=== PATIENT | female | born 1960 | race Caucasian/White ===

== ENCOUNTER → 2018-03-10 16:36 | Outpatient (CLI) | payer OTHER, MEDICAID, SELFPAY ==
[2018-03-10 18:01] LABS: Alanine Aminotransferase 20 IU/L (9-52); Albumin 4.8 g/dL (3.5-5.0); Albumin Globulin Ratio 1.4 (1.0-2.8); Alkaline Phosphatase 63 U/L (38-126); Aspartate Aminotransferase 17 IU/L (14-36); Bilirubin Total 0.8 mg/dL (0.2-1.3); Blood Urea Nitrogen 22 mg/dL (7-17); Calcium 9.5 mg/dL (8.4-10.2); Carbon Dioxide 26 mmol/L (22-32); Chloride 105 mmol/L (98-107); Estimated Glomerular Filt Rate 57.1 mL/min (>60); Globulin 3.5 g/dL (1.7-4.1); Glucose 126 mg/dL (70-100); HEMOLYSIS < 15 (0-50); Potassium 4.7 mmol/L (3.4-5.1); Sodium 143 mmol/L (137-145); Total Protein 8.3 g/dL (6.3-8.2)
[2018-03-10 18:21] LABS: Add Manual Diff / Slide Review NO; Basophils Percent Auto 0.1 % (0-2); Hematocrit 36.5 % (36-46); Hemoglobin 12.4 g/dL (12.0-16.0); Lymphocytes Percent Auto 15.4 % (25-40); Mean Corpuscular HGB Conc 33.9 % (30-36); Mean Corpuscular Hemoglobin 31.3 PG (26-34); Mean Corpuscular Volume 92.4 fL (80-100); Neutrophils Absolute Auto 6100 /uL (1500-7000); Neutrophils Percent Auto 80.5 % (50-75); Platelet Count 366 X10^3/uL (150-400); Red Blood Cell Count 3.95 X10^6/uL (4.0-5.2); Red Cell Distribution Width 12.5 % (11.6-14.8); White Blood Cell Count 7.6 X10^3/uL (4.5-11.0)
[2018-03-10 18:32] LABS: Thyroid Stimulating Hormone 1.62 uIU/mL (0.47-4.68)
== END ==
PROVIDERS: PCP Family Medicine; Visit Provider Family Medicine
DX: Z94.0 Kidney transplant status (principal)
CPT/HCPCS: 36415; 80053; 84443; 85025

== ENCOUNTER 2018-05-23 11:37 | Emergency (ER) | payer OTHER, MEDICAID, SELFPAY ==
[2018-05-23 11:44] VITALS: BP 154/96; PULSE 80; RESP 17; TEMP 37; O2SAT 100
--- NOTE | 2018-05-23 14:52 | PC.NURSE ---
gone out to update rubio twice. but she still wants to leave. signed paper work, said she would call her pcp to let them know not seen today.
== END 2018-05-23 14:54 | disposition left against medical advice (07) ==
PROVIDERS: Emergency Provider Emergency Medicine; PCP Family Medicine
DX: Z53.21 Procedure and treatment not carried out due to patient leaving prior to being seen by health care provider (principal)
CPT/HCPCS: 81003; 99282

== ENCOUNTER → 2018-05-26 14:35 | Outpatient (CLI) | payer OTHER, MEDICAID, SELFPAY ==
--- NOTE | 2018-05-26 14:37 | DI.MRI.S_ITS ---
PROCEDURE: MR ABDOMEN WO CON INDICATIONS: chronic pancreatitis, abdominal pain TECHNIQUE: Coronal HASTE through the abdomen, axial 2-D FLASH in- and [id number], and breath-hold T2 FSE with fat saturation through the biliary system and pancreas. Oblique coronal and axial thin-slice HASTE, radial thick-slab HASTE centered on the extrahepatic bile ducts. Intravenous secretin: Not requested. COMPARISON: [facility], CT, ABDOMEN/PELVIS WITH CONTRAST, 09/21/2016, 9:23. FINDINGS: Image quality: Exce slightly degraded due to due respiratory motion llent. Pancreas and biliary system: Intra- and extra-hepatic biliary ducts are non dilated. Pancreatic duct is mildly prominent in size, unchanged from previous CT study. Calcification scattered along pancreatic parenchyma is noted, consistent with chronic pancreatitis. No discrete pancreatic lesion is seen. There is no pancreatic duct developmental anomalies. Gallbladder is surgically absent. Other solid organs: Liver is normal in size. Post surgical changes from hepatic transplant are seen in right upper quadrant abdomen unchanged from prior study. No discrete hepatic lesion is seen. Spleen is normal in size. No adrenal nodules. 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 Right pelvic kidney is partially visualized and show no gross hydronephrosis. Nodes and vessels: No retroperitoneal or mesenteric adenopathy by size criteria. Aorta and inferior vena cava are normal in size. Bowel and peritoneum: Unenhanced bowel loops are normal in caliber. No free fluid. Lung bases: No basal pleural effusions. Heart size is normal. Bones and soft tissues: No ventral hernias. Bone marrow is of normal overall signal. IMPRESSION: #1. No intrahepatic biliary ductal dilatation. No common bile duct dilatation. Mild prominence of pancreatic duct unchanged from prior study. No evidence of choledocholithiasis. #2. Few calcifications scattered along pancreatic body and tail, likely represent chronic pancreatitis. No gross discrete pancreatic lesion or peripancreatic inflammatory changes. #3: Post surgical changes from liver transplant and kidney transplant with right sided pelvic kidney. Atrophic appearing bilateral andreafski kidneys. No hydronephrosis. Dictated by: Orlando Bales M.D. on 05/26/2018 at 16:06 Approved by: Orlando Bales M.D. on 05/26/2018 at 16:14
== END ==
PROVIDERS: PCP Family Medicine; Visit Provider Family Medicine
DX: K86.1 Other chronic pancreatitis (principal); R10.9 Unspecified abdominal pain; Z94.4 Liver transplant status; Z94.0 Kidney transplant status
CPT/HCPCS: 74181

== ENCOUNTER → 2018-12-16 12:38 | Outpatient (CLI) | payer OTHER, MEDICAID, SELFPAY ==
[2018-12-16 15:20] LABS: Bacteria Urine None Seen
[2018-12-16 15:24] LABS: Appearance Urine UA CLEAR; Bilirubin Urine UA NEGATIVE (NEGATIVE); Color Urine UA YELLOW; Glucose Urine UA NEGATIVE (Negative); Ketones Urine UA NEGATIVE (NEGATIVE); Leukocyte Esterase Urine UA TRACE (NEGATIVE); Nitrite Urine UA NEGATIVE (Negative); Occult Blood Urine UA 2+ (Negative); Protein Urine UA 1+ (Negative); Urobilinogen Urine UA 0.2 E.U./dL (0.2)
[2018-12-16 15:40] LABS: RBC Urine 5-10/HPF (0-5/HPF); Squamous Epithelial Cell Urine 5-10 /HPF (0-5/HPF); WBC Urine 1-5/HPF (0-5/HPF)
[2018-12-16 15:41] LABS: Culture Indicated Urine Cult Not Indicated
== END ==
PROVIDERS: PCP Family Medicine; Visit Provider Hospitalist
DX: M54.9 Dorsalgia, unspecified (principal)
CPT/HCPCS: 81001

== ENCOUNTER → 2018-12-16 13:06 | Outpatient (CLI) | payer OTHER, MEDICAID, SELFPAY ==
[2018-12-16 13:20] LABS: Add Manual Diff / Slide Review NO; Basophils Absolute Auto 0 /uL (0-100); Basophils Percent Auto 0.3 % (0-2); Eosinophils Absolute Auto 0 /uL (0-450); Hematocrit 32.8 % (36-46); Hemoglobin 11.3 g/dL (12.0-16.0); Lymphocytes Absolute Auto 1100 /uL (1100-4500); Lymphocytes Percent Auto 10.9 % (25-40); Mean Corpuscular HGB Conc 34.5 % (30-36); Mean Corpuscular Hemoglobin 31.7 PG (26-34); Mean Corpuscular Volume 91.7 fL (80-100); Monocytes Absolute Auto 800 /uL (0-900); Monocytes Percent Auto 8.2 % (3-14); Neutrophils Absolute Auto 8100 /uL (1500-7000); Neutrophils Percent Auto 80.6 % (50-75); Platelet Count 220 X10^3/uL (150-400); Red Blood Cell Count 3.58 X10^6/uL (4.0-5.2); Red Cell Distribution Width 12.9 % (11.6-14.8)
[2018-12-16 13:45] LABS: BUN Creatinine Ratio 15.7 (6-22); Blood Urea Nitrogen 22 mg/dL (7-17); Calcium 9.6 mg/dL (8.4-10.2); Carbon Dioxide 24 mmol/L (22-32); Chloride 99 mmol/L (98-107); Estimated Glomerular Filt Rate 38.6 mL/min (>60); Glucose 118 mg/dL (70-100); HEMOLYSIS 20 (0-50); Potassium 4.5 mmol/L (3.4-5.1); Sodium 137 mmol/L (137-145)
== END ==
PROVIDERS: PCP Family Medicine; Visit Provider Hospitalist
DX: N39.0 Urinary tract infection, site not specified (principal); R10.9 Unspecified abdominal pain; M54.9 Dorsalgia, unspecified
CPT/HCPCS: 36415; 80048; 81001; 85025

== ENCOUNTER → 2018-12-23 12:20 | Outpatient (CLI) | payer OTHER, MEDICAID, SELFPAY ==
[2018-12-23 13:53] LABS: BUN Creatinine Ratio 20.8 (6-22); Blood Urea Nitrogen 27 mg/dL (7-17); Calcium 9.5 mg/dL (8.4-10.2); Carbon Dioxide 25 mmol/L (22-32); Chloride 106 mmol/L (98-107); Estimated Glomerular Filt Rate 42.1 mL/min (>60); Glucose 95 mg/dL (70-100); HEMOLYSIS < 15 (0-50); Potassium 4.7 mmol/L (3.4-5.1); Sodium 142 mmol/L (137-145)
[2018-12-25 19:56] LABS: Tacrolimus 3.2 mcg/L (5.0-20.0)
== END ==
PROVIDERS: PCP Family Medicine; Visit Provider Hospitalist
DX: Z94.0 Kidney transplant status (principal); N17.9 Acute kidney failure, unspecified
CPT/HCPCS: 36415; 80048; 80197

== ENCOUNTER → 2019-02-23 09:57 | Outpatient (CLI) | payer OTHER, MEDICAID, SELFPAY ==
--- NOTE | 2019-02-23 09:59 | DI.RAD.S_ITS ---
PROCEDURE: XR ACUTE ABDOMEN SERIES INDICATIONS: Abdominal pain TECHNIQUE: One view chest and two views of the abdomen were acquired. COMPARISON: None. FINDINGS: Surgical changes and devices: Abdominal surgical clips and vascular coils. Chest: Lungs are clear. Heart size is normal. No pleural effusions. No pneumoperitoneum. Abdomen: Bowel gas pattern is normal. No suspicious calcifications. Visualized solid organ contours appear normal. Bones: No suspicious bony lesions. IMPRESSION: No evidence acute pulmonary process. No evidence acute abdominal process. Dictated by: Luis Miguel Sen M.D. on 02/23/2019 at 11:00 Approved by: Luis Miguel Sen M.D. on 02/23/2019 at 11:02
[2019-02-23 10:05] LABS: RBC Urine None Seen (0-5/HPF)
[2019-02-23 10:29] LABS: Appearance Urine UA CLEAR; Bilirubin Urine UA NEGATIVE (NEGATIVE); Color Urine UA YELLOW; Glucose Urine UA NEGATIVE (Negative); Ketones Urine UA NEGATIVE (NEGATIVE); Leukocyte Esterase Urine UA NEGATIVE (NEGATIVE); Nitrite Urine UA NEGATIVE (Negative); Occult Blood Urine UA NEGATIVE (Negative); Protein Urine UA NEGATIVE (Negative); Urobilinogen Urine UA 0.2 E.U./dL (0.2)
[2019-02-23 10:37] LABS: Add Manual Diff / Slide Review NO; Basophils Absolute Auto 0 /uL (0-100); Basophils Percent Auto 0.9 % (0-2); Eosinophils Absolute Auto 100 /uL (0-450); Eosinophils Percent Auto 1.9 % (2-4); Hematocrit 37.4 % (36-46); Hemoglobin 12.8 g/dL (12.0-16.0); Lymphocytes Absolute Auto 1400 /uL (1100-4500); Lymphocytes Percent Auto 27.5 % (25-40); Mean Corpuscular HGB Conc 34.1 % (30-36); Mean Corpuscular Hemoglobin 31.4 PG (26-34); Mean Corpuscular Volume 91.9 fL (80-100); Monocytes Absolute Auto 300 /uL (0-900); Neutrophils Absolute Auto 3200 /uL (1500-7000); Neutrophils Percent Auto 63.7 % (50-75); Platelet Count 317 X10^3/uL (150-400); Red Blood Cell Count 4.07 X10^6/uL (4.0-5.2)
[2019-02-23 10:40] LABS: Bacteria Urine Moderate (10-30); Culture Indicated Urine Cult Not Indicated; Squamous Epithelial Cell Urine 5-10 /HPF (0-5/HPF); WBC Urine 1-5/HPF (0-5/HPF)
[2019-02-23 11:08] LABS: Alanine Aminotransferase 18 IU/L (<35); Albumin 4.8 g/dL (3.5-5.0); Albumin Globulin Ratio 1.5 (1.0-2.8); Alkaline Phosphatase 79 U/L (38-126); Aspartate Aminotransferase 28 IU/L (14-36); BUN Creatinine Ratio 16.2 (6-22); Bilirubin Total 2.5 mg/dL (0.2-1.3); Blood Urea Nitrogen 21 mg/dL (7-17); Carbon Dioxide 23 mmol/L (22-32); Chloride 106 mmol/L (98-107); Estimated Glomerular Filt Rate 42.1 mL/min (>60); Globulin 3.1 g/dL (1.7-4.1); Glucose 128 mg/dL (70-100); HEMOLYSIS < 15 (0-50); Potassium 5.7 mmol/L (3.4-5.1); Sodium 139 mmol/L (137-145); Total Protein 7.9 g/dL (6.3-8.2)
[2019-02-23 11:09] LABS: Amylase 56 U/L (30-110); Cholesterol 184 mg/dL (140-199); HDL Cholesterol 83 mg/dL (40-60); LDL Cholesterol Calculated 67 mg/dL (<100); Lipase 18 U/L (23-300); Triglycerides 170 mg/dL (35-150)
[2019-02-27 11:05] LABS: Tacrolimus 5.4 mcg/L (5.0-20.0)
== END ==
PROVIDERS: PCP Family Medicine; Visit Provider Family Medicine
DX: R10.9 Unspecified abdominal pain (principal)
CPT/HCPCS: 36415; 74022; 80053; 80061; 80197; 81001; 82150; 83690; 85025

== ENCOUNTER 2020-02-08 08:33 | Emergency (ER) | payer OTHER, MEDICAID, SELFPAY ==
[2020-02-08 08:48] VITALS: BP 190/88; PULSE 74; RESP 16; TEMP 36.8; O2SAT 99; BMI 23.9
--- NOTE | 2020-02-08 09:09 | ED.BACK ---
HPI - Back Pain/Injury General Chief Complaint: Back Pain/Injury Stated Complaint: right breast/abd pressure/low back x3days Time Seen by Provider: 02/08/20 09:09 Source: patient Limitations: no limitations Related Data Home Medications Medication Instructions Recorded Confirmed fluticasone propionate [Flovent 2 spray INH BID #0 09/21/11 02/23/19 HFA] Previous Rx's Medication Instructions Recorded hydrocodone-acetaminophen [Christiana] 1 tab PO Q6HP PRN #30 tab 03/14/17 omeprazole magnesium 20 mg 20 mg PO QDAY #90 tab 05/22/18 tablet,delayed release benzonatate 100 mg capsule 100 mg PO TID PRN #90 cap 07/04/18 tacrolimus 1 mg capsule 2 mg PO BID #120 cap 08/26/18 [id number] See Rx Instructions .ROUTE 06/10/19 12,000-38,000-60,000 unit .COMPLEX #540 cap capsule,delayed rel estradiol 10 mcg vaginal tablet 10 mcg VAGINAL 2XW #8 tab 08/24/19 mycophenolate sodium 180 mg 180 mg PO SEE INSTRUCTIONS #180 tab 09/12/19 tablet,delayed release albuterol sulfate 90 mcg/actuation 2 puff INHALATION BID PRN #18 gram 11/16/19 aerosol inhaler Allergies Allergy/AdvReac Type Severity Reaction Status Date / Time hydrocodone [From VICODIN] Allergy Mild rash Unverified 12/23/18 11:51 promethazine [From PHENERGAN] Allergy Unknown Unverified 12/23/18 11:51 Patient History Medical History (Updated 02/23/19 @ 12:56 by Festus Patel MD) Ankle pain (~2012) Asthma (~2009) Chicken pox (~1964) Chronic back pain (~2012) Cirrhosis (~2013) Foot pain (~2012) GI bleeding (~2013) Kidney failure (~2013) Liver disease (~2013) Measles (~1964) Vertigo (~2015) Surgical History Anesthesia Status post delivery (~1983) Status post delivery (~1986) Status post delivery (~1994) Status post hysterectomy (~1998) Transplant (~2013) Social History Smoking Status: Never smoker Smoking Status: Never smoker alcohol intake frequency: other Substance Use Type: does not use Exam Initial Vital Signs Initial Vital Signs: Vital Signs Temperature 98.3 F 02/08/20 08:48 Pulse Rate 74 02/08/20 08:48 Respiratory Rate 16 02/08/20 08:48 Blood Pressure 190/88 H 02/08/20 08:48 Pulse Oximetry 99 02/08/20 08:48 Course Vital Signs Vital signs: Vital Signs - 8 hr 02/08/20 08:48 Temperature 98.3 F Pulse Rate 74 Respiratory Rate 16 Blood Pressure 190/88 H Pulse Oximetry 99 Discharge Plan Departure Prescriptions: No Action fluticasone propionate [Flovent HFA] 12 GM HFA aerosol inhaler 2 spray INH BID Qty: 0 RF: 0 hydrocodone-acetaminophen [Christiana] 5 MG/325 MG tablet 1 tab PO Q6HP PRNQty: 30 RF: 0 Prilosec OTC 20 mg tablet,delayed release (DR/EC) 20 mg PO QDAY Qty: 90 RF: 3 benzonatate [Tessalon Perles] 100 mg capsule 100 mg PO TID PRN (Reason: cough) Qty: 90 RF: 3 tacrolimus [Prograf] 1 mg capsule 2 mg PO BID Qty: 120 RF: 2 Creon 12,000-38,000 -60,000 unit capsule,delayed release(DR/EC) See Rx Instructions .ROUTE .COMPLEX Qty: 540 RF: 3 estradiol [Vagifem] 10 mcg tablet 10 mcg Vaginal 2XW Qty: 8 RF: 11 mycophenolate sodium 180 mg tablet,delayed release (DR/EC) 180 mg PO SEE INSTRUCTIONS Qty: 180 RF: 3 albuterol sulfate [Proventil HFA] 90 mcg/actuation HFA aerosol inhaler 2 puff inhalation BID PRN (Reason: shortness of breath or wheezing) Qty: 18 RF: 2
--- NOTE | 2020-02-08 09:29 | ED_ITS ---
HPI - Chest Pain General Chief Complaint: Back Pain/Injury Stated Complaint: right breast/abd pressure/low back x3days Time Seen by Provider: 02/08/20 09:09 Source: patient Mode of arrival: Ambulatory Limitations: no limitations History of Present Illness HPI narrative: This is a 59-year-old female comes in with complaint of a itch on her posterior back that becomes a burning sensation and radiates long thoracic d ermatome to her left nipple. It does not cross the midline it started Saturday evening was significantly worse yesterday and slightly improved overnight and then worsened this morning. She states that she has not appreciated any rash or skin changes. She does have a history of shingles which she had on her head in the past. She states she did not develop a rash at that time either. She states she was treated with prednisone and valacyclovir. Patient denies any fevers or chills. She states she also developed a little bit of heaviness in her chest this morning and felt a little short of breath. She also describes some low back pain and abdominal discomfort. She denies any nausea, no v omiting, no diaphoresis. No issues with bowel movements. She does have some urinary frequency, she feels like she is not completely emptying her bladder. She denies any vaginal bleeding or discharge. She has a history significant for liver and kidney transplant which occurred after alcohol abuse she no longer drinks alcohol. Patient takes Creon, attack early miss and mycophenolic. She also has a history of partial hysterectomy, unilateral oophorectomy, cholecystectomy, tonsillectomy . She follows with the transplant team at [facility]. Related Data Home Medications Medication Instructions Recorded Confirmed fluticasone propionate [Flovent 2 spray INH BID #0 09/21/11 02/23/19 HFA] Previous Rx's Medication Instructions Recorded hydrocodone-acetaminophen [Ossian] 1 tab PO Q6HP PRN #30 tab 03/14/17 omeprazole magnesium 20 mg 20 mg PO QDAY #90 tab 05/22/18 tablet,delayed release benzonatate 100 mg capsule 100 mg PO TID PRN #90 cap 07/04/18 tacrolimus 1 mg capsule 2 mg PO BID #120 cap 08/26/18 [id number] See Rx Instructions .ROUTE 06/10/19 12,000-38,000-60,000 unit .COMPLEX #540 cap capsule,delayed rel estradiol 10 mcg vaginal tablet 10 mcg VAGINAL 2XW #8 tab 08/24/19 mycophenolate sodium 180 mg 180 mg PO SEE INSTRUCTIONS #180 tab 09/12/19 tablet,delayed release albuterol sulfate 90 mcg/actuation 2 puff INHALATION BID PRN #18 gram 11/16/19 aerosol inhaler prednisone See Rx Instructions .ROUTE 02/08/20 .COMPLEX #15 ea tramadol 50 mg PO Q6H PRN #10 tab 02/08/20 valacyclovir 1,000 mg PO TID 7 Days #21 tab 02/08/20 Allergies Allergy/AdvReac Type Severity Reaction Status Date / Time hydrocodone [From VICODIN] Allergy Mild rash Unverified 12/23/18 11:51 promethazine [From PHENERGAN] Allergy Unknown Unverified 12/23/18 11:51 Review of Systems Review of Systems ROS Unobtainable: All systems reviewed & are unremarkable except as noted in HPI and below Patient History Medical History (Updated 02/08/20 @ 09:35 by Colleen Degroot DO) Ankle pain (~2012) Asthma (~2009) Chicken pox (~1964) Chronic back pain (~2012) Cirrhosis (~2013) Foot pain (~2012) GI bleeding (~2013) Kidney failure (~2013) Liver disease (~2013) Measles (~1964) Vertigo (~2015) Surgical History Anesthesia Status post delivery (~1983) Status post delivery (~1986) Status post delivery (~1994) Status post hysterectomy (~1998) Transplant (~2013) Social History Smoking Status: Never smoker Smoking Status: Never smoker alcohol intake frequency: other Substance Use Type: does not use Exam Narrative Exam Narrative: GENERAL: Alert and oriented x three, well-nourished, well- appearing female in mild distress. HEENT: Head normocephalic, atraumatic, EOMI, pupils reactive, face symmetric, moist mucous membranes NECK: Supple, full range of motion CARDIOVASCULAR: Regular rate and rhythm without murmurs, rubs or gallops. Patient has very fine 8 erythematous line from left lateral the T5 dermatome wrapping around towards the left breast. No vesicles, raised lesions or other skin changes are appreciated. It does not cross the midline. Patient does have some increased discomfort when touched or when the EKG leads are present on the area. RESPIRATORY: Breath sounds equal bilaterally, no wheezes rales or rhonchi. ABDOMEN: Soft, nontender. Normoactive bowel sounds all 4 quadrants. No guarding or rebound, rigidity, no mass, healed incision consistent with prior transplant. : No CVA tenderness EXTREMITIES: Normal range of motion, no clubbing or edema. Neurovascularly intact NEUROLOGICAL: Cranial nerves II through XII grossly intact. Moving all extremities SKIN: Warm, dry, no petechiae, no rashes or lesions. Initial Vital Signs Initial Vital Signs: Vital Signs Temperature 98.3 F 02/08/20 08:48 Pulse Rate 74 02/08/20 08:48 Respiratory Rate 16 02/08/20 08:48 Blood Pressure 190/88 H 02/08/20 08:48 Pulse Oximetry 99 02/08/20 08:48 Scores HEART Score Heart Score history: Slightly Suspicious Heart Score Age: < 45 years old Heart Score risk factors: No known risk factors Heart Score troponin: < or = to normal limit Course Orders Ordered: ED Orders 02/08/20 09:27 XR chest 1V Stat Urinalysis and Microscopic Stat 02/08/20 09:34 Complete Blood Count AUTO DIFF Stat Comprehensive Metabolic Panel Stat Lipase Stat Troponin & CK Cardiac Panel Stat Vital Signs Vital signs: Vital Signs - 8 hr 02/08/20 08:48 Temperature 98.3 F Pulse Rate 74 Respiratory Rate 16 Blood Pressure 190/88 H Pulse Oximetry 99 MDM - Chest Pain Lab Data Attestation: I reviewed the patient's lab results. Result diagrams: 02/08/20 09:34 02/08/20 09:34 Labs: Lab Results 02/08/20 02/08/20 Range/Units 09:34 09:34 WBC 4.2 L (4.5-11.0) X10^3/uL RBC 4.16 (4.0-5.2) X10^6/uL Hgb 12.8 (12.0-16.0) g/dL Hct 38.2 (36-46) % MCV 92.0 (80-100) fL MCH 30.8 (26-34) PG MCHC 33.5 (30-36) % RDW 13.5 (11.6-14.8) % Plt Count 248 (150-400) X10^3/uL Neut % (Auto) 59.5 (50-75) % Lymph % (Auto) 29.5 (25-40) % [place] % (Auto) 6.9 (3-14) % Eos % (Auto) 2.7 (2-4) % Baso % (Auto) 1.4 (0-2) % Neut # (Auto) 2500 (0848-2092) /uL Lymph # (Auto) 1200 (5448-2118) /uL [place] # (Auto) 300 (0-900) /uL Eos # (Auto) 100 (0-450) /uL Baso # (Auto) 100 (0-100) /uL Sodium 139 (137-145) mmol/L Potassium 4.8 (3.4-5.1) mmol/L Chloride 106 (98-107) mmol/L Carbon Dioxide 27 (22-32) mmol/L BUN 28 H (7-17) mg/dL Creatinine 0.99 (0.52-1.04) mg/dL Estimated GFR 57.4 L (>60) mL/min BUN/Creatinine Ratio 28.3 H (6-22) Glucose 95 (70-100) mg/dL Calcium 9.4 (8.4-10.2) mg/dL Total Bilirubin 0.9 (0.2-1.3) mg/dL AST 28 (14-36) IU/L ALT 18 (<35) IU/L Alkaline Phosphatase 68 (38-126) U/L Total Creatine Kinase 81 (30-135) U/L CK-MB (CK-2) TNP CK-MB (CK-2) Rel Index TNP Troponin I < 0.012 (0.01-0.034) ng/mL Total Protein 8.0 (6.3-8.2) g/dL Albumin 4.6 (3.5-5.0) g/dL Globulin 3.4 (1.7-4.1) g/dL Albumin/Globulin Ratio 1.4 (1.0-2.8) Lipase 32 (23-300) U/L Urine Dip Bedside Urine Glucose Negative Bedside Urine Bilirubin - Negative Bedside Urine Ketone - Negative Urine Specific [place] 1.025 Bedside Urine Occult Blood - Negative Bedside Urine pH 6.0 Bedside Urine Protein - Negative Bedside Urine Urobilinogen - Negative Bedside Urine Nitrite - Negative Bedside Urine Leukocytes - Negative Esterase Imaging Data Chest x-ray: Radiologist's Impression: [place] [id number] [place] [id number] ReportSigned Patient: Kesha Jo AMR#: [id number]: 1Acct:[id number]/Sex: 59 / FDate of Service: 02/08/20Loc: EDAccession Number: [id number] Procedure: XR chest 1V Ordering Provider: Colleen Degroot D.O. PROCEDURE: XR CHEST 1V INDICATIONS: chest pain TECHNIQUE: One view of the chest was acquired. COMPARISON: [facility], CR, XR ACUTE ABDOMEN SERIES, 02/23/2019, 10:23. FINDINGS: Surgical changes and devices: Epigastric postoperative changes are seen. Lungs and pleura: Lungs are clear. No pleural effusions or pneumothorax. Mediastinum: The cardiac contours are within normal limits. The aorta demonstrates calcification and tortuosity. Bones and chest wall: Age-appropriate bony degenerative changes are seen. No suspicious bony lesions. Overlying soft tissues appear unremarkable. IMPRESSION: No acute portable chest abnormality is seen. Postoperative and degenerative changes are seen. Dictated by: Mickey Vogel M.D. on 02/08/2020 at 8:50 Approved by: Mickey Vogel M.D. on 02/08/2020 at 8:50 ECG Data Attestation: I personally reviewed and interpreted this ECG as follows: Prior ECG tracings: not available for review Interpretation: Sinus rhythm rate of 70, P are 182, QRS is 74 and QTC of 401. No ST elevation appreciated. No depression appreciated. RSR in lead 3. MDM Narrative Medical decision making narrative: Patient's exam seems consistent with shingles but with her history of liver and kidney transplant and UTI like symptoms which she was concerned about plan to do basic labs. She also has some description of some chest pressure on the left side as well and unclear if this could be related to shingles so cardiac labs and evaluation were included. Patient's labs show a mild leukopenia, her hemoglobin is normal, renal function is slightly improved from normal and with no major electrolyte abnormalities. Patient's troponin is negative, patient's I suspect shingles rather than a cardiac event. Urine does not show any signs of infection. Patient started on antivirals and recommended to contact transplant team to discussion future medication options if she has multiple recurrences. Discharge Plan Departure Patient Disposition: Home Clinical Impression: Shingles Instructions: DI for Shingles Activity Restrictions/Additional Instructions: Follow-up with your physician in the next week for recheck. If he continued to have episodes of shingles you may wish to discuss with your transplant team if it daily antiviral is appropriate. Take prednisone until gone. Take antivirals until completed. Return to the ER for fevers greater 100.4 F, new chest pain shortness of breath, lightheaded is passing out, persistent vomiting, worsening back or flank pain, decreased urine output, inability urinate or other new or concerning symptoms. Prescriptions: New valacyclovir 1 gram tablet 1,000 mg PO TID 7 Days Qty: 21 RF: 0 prednisone 10 mg tablets,dose pack See Rx Instructions .ROUTE .COMPLEX Qty: 15 RF: 0 tramadol 50 mg tablet 50 mg PO Q6H PRN (Reason: pain) Qty: 10 RF: 0 No Action fluticasone propionate [Flovent HFA] 12 GM HFA aerosol inhaler 2 spray INH BID Qty: 0 RF: 0 hydrocodone-acetaminophen [Ossian] 5 MG/325 MG tablet 1 tab PO Q6HP PRNQty: 30 RF: 0 Prilosec OTC 20 mg tablet,delayed release (DR/EC) 20 mg PO QDAY Qty: 90 RF: 3 benzonatate [Tessalon Perles] 100 mg capsule 100 mg PO TID PRN (Reason: cough) Qty: 90 RF: 3 tacrolimus [Prograf] 1 mg capsule 2 mg PO BID Qty: 120 RF: 2 Creon 12,000-38,000 -60,000 unit capsule,delayed release(DR/EC) See Rx Instructions .ROUTE .COMPLEX Qty: 540 RF: 3 estradiol [Vagifem] 10 mcg tablet 10 mcg Vaginal 2XW Qty: 8 RF: 11 mycophenolate sodium 180 mg tablet,delayed release (DR/EC) 180 mg PO SEE INSTRUCTIONS Qty: 180 RF: 3 albuterol sulfate [Proventil HFA] 90 mcg/actuation HFA aerosol inhaler 2 puff inhalation BID PRN (Reason: shortness of breath or wheezing) Qty: 18 RF: 2 Referrals: Festus Patel MD [Primary Care Provider] -
[2020-02-08 09:42] LABS: Add Manual Diff / Slide Review NO; Basophils Absolute Auto 100 /uL (0-100); Basophils Percent Auto 1.4 % (0-2); Eosinophils Absolute Auto 100 /uL (0-450); Eosinophils Percent Auto 2.7 % (2-4); Hematocrit 38.2 % (36-46); Hemoglobin 12.8 g/dL (12.0-16.0); Lymphocytes Absolute Auto 1200 /uL (1100-4500); Lymphocytes Percent Auto 29.5 % (25-40); Mean Corpuscular HGB Conc 33.5 % (30-36); Mean Corpuscular Hemoglobin 30.8 PG (26-34); Monocytes Absolute Auto 300 /uL (0-900); Monocytes Percent Auto 6.9 % (3-14); Neutrophils Absolute Auto 2500 /uL (1500-7000); Neutrophils Percent Auto 59.5 % (50-75); Platelet Count 248 X10^3/uL (150-400); Red Blood Cell Count 4.16 X10^6/uL (4.0-5.2); Red Cell Distribution Width 13.5 % (11.6-14.8); White Blood Cell Count 4.2 X10^3/uL (4.5-11.0)
[2020-02-08 09:52] LABS: Alanine Aminotransferase 18 IU/L (<35); Albumin 4.6 g/dL (3.5-5.0); Albumin Globulin Ratio 1.4 (1.0-2.8); Alkaline Phosphatase 68 U/L (38-126); Aspartate Aminotransferase 28 IU/L (14-36); BUN Creatinine Ratio 28.3 (6-22); Bilirubin Total 0.9 mg/dL (0.2-1.3); Blood Urea Nitrogen 28 mg/dL (7-17); Calcium 9.4 mg/dL (8.4-10.2); Carbon Dioxide 27 mmol/L (22-32); Chloride 106 mmol/L (98-107); Creatine Kinase 81 U/L (30-135); Estimated Glomerular Filt Rate 57.4 mL/min (>60); Globulin 3.4 g/dL (1.7-4.1); Glucose 95 mg/dL (70-100); HEMOLYSIS < 15 (0-50); Lipase 32 U/L (23-300); Potassium 4.8 mmol/L (3.4-5.1); Sodium 139 mmol/L (137-145)
[2020-02-08 10:04] LABS: Troponin I < 0.012 ng/mL (0.01-0.034)
[2020-02-08 10:44] VITALS: BP 145/90; PULSE 71; RESP 18; O2SAT 98
== END 2020-02-08 11:04 | disposition home or self-care (01) ==
PROVIDERS: Emergency Provider Emergency Medicine; PCP Family Medicine
DX: B02.9 Zoster without complications (principal); R07.9 Chest pain, unspecified; Z94.4 Liver transplant status; Z94.0 Kidney transplant status; R79.89 Other specified abnormal findings of blood chemistry
CPT/HCPCS: 36415; 71045; 80053; 81003; 82550; 83690; 84484; 85025; 93005; 99282; 99284

== ENCOUNTER 2020-02-25 10:12 | Emergency (ER) | payer OTHER, MEDICAID, SELFPAY ==
[2020-02-25 10:18] VITALS: BP 152/103; PULSE 83; RESP 15; TEMP 36.8; O2SAT 99; BMI 24.7
--- NOTE | 2020-02-25 10:36 | ED_ITS ---
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 Patient was in emergency room 3 and half weeks ago and was treated with shingles on left back. patient reports right flank discomfort is different from previous shingles discomfort and describes as burning sensation as compared to previous shingles discomfort as shooting pain. patient is currently taking gabapentin. She is on 2 different immunosuppressant medications. Patient is being treated for UTI with Septra for last [address] Patel. patient denies urinary symptoms including dysuria, frequency, urgency. Reports she does not have typical urinary symptoms with previous UTIs but just systematic symptoms. Patient denies fever, chills, nausea or vomiting. Patient reports pain as 5/10. Patient denies facial droops, paralysis, speech difficulty, swallowing difficulty, or headaches. Related Data Home Medications Medication Instructions Recorded Confirmed fluticasone propionate [Flovent 2 spray INH BID #0 09/21/11 02/23/19 HFA] Previous Rx's Medication Instructions Recorded hydrocodone-acetaminophen [[place]] 1 tab PO Q6HP PRN #30 tab 03/14/17 omeprazole magnesium 20 mg 20 mg PO QDAY #90 tab 05/22/18 tablet,delayed release benzonatate 100 mg capsule 100 mg PO TID PRN #90 cap 07/04/18 tacrolimus 1 mg capsule 2 mg PO BID #120 cap 08/26/18 [id number] See Rx Instructions .ROUTE 06/10/19 12,000-38,000-60,000 unit .COMPLEX #540 cap capsule,delayed rel estradiol 10 mcg vaginal tablet 10 mcg VAGINAL 2XW #8 tab 08/24/19 mycophenolate sodium 180 mg 180 mg PO SEE INSTRUCTIONS #180 tab 09/12/19 tablet,delayed release albuterol sulfate 90 mcg/actuation 2 puff INHALATION BID PRN #18 gram 11/16/19 aerosol inhaler prednisone See Rx Instructions .ROUTE 02/08/20 .COMPLEX #15 ea tramadol 50 mg PO Q6H PRN #10 tab 02/08/20 gabapentin 300 mg capsule 300 mg PO BID #30 cap 02/22/20 sulfamethoxazole 800 1 tab PO BID #20 tab 02/22/20 mg-trimethoprim 160 mg tablet Allergies Allergy/AdvReac Type Severity Reaction Status Date / Time hydrocodone [From VICODIN] Allergy Mild rash Verified 02/25/20 10:25 promethazine [From PHENERGAN] Allergy Unknown Verified 02/25/20 10:25 Review of Systems <JESUS ALBERTO Bravo - Last Filed: 02/25/20 13:18> Review of Systems Narrative: General: Denies fever, chills, fatigue, malaise, sweats. HEENT: Denies sinus pain, ear pain, sore throat, difficulty swallowing, dizziness. Respiratory: Denies dyspnea, cough, wheezing, hemoptysis, sputum. Cardiovascular: Denies chest pain, palpitations, orthopnea, edema. Gastrointestinal: See HPI : Denies dysuria, frequency, incontinence, hematuria, urinary retention. Musculoskeletal: See HPI Skin: Denies rash, skin lesions, or other. Neurologic: Denies weakness, headache, numbness, change in speech, confusion, seizures, incoordination. Psychiatric: No concerning psychosocial issues. 12-point review of systems is negative except for those stated above. Patient History <JESUS ALBERTO Bravo - Last Filed: 02/25/20 13:18> Medical History (Updated 02/25/20 @ 12:40 by JESUS ALBERTO Bravo) Ankle pain (~2012) Asthma (~2009) Chicken pox (~1964) Chronic back pain (~2012) Cirrhosis (~2013) Foot pain (~2012) GI bleeding (~2013) Kidney failure (~2013) Liver disease (~2013) Measles (~1964) Vertigo (~2015) Surgical History Anesthesia Status post delivery (~1983) Status post delivery (~1986) Status post delivery (~1994) Status post hysterectomy (~1998) Transplant (~2013) Social History Smoking Status: Never smoker Smoking Status: Never smoker alcohol intake frequency: other Substance Use Type: does not use Exam <JESUS ALBERTO Bravo - Last Filed: 02/25/20 13:18> Narrative Exam Narrative: GEN: Alert, oriented x 3, well appearing and nourished, and in no acute distress. Head: Normal cephalic, atraumatic. No scalp or temporal tenderness, palpable mass or rash. EYES: Pupils are equal, round, and reactive to light and accommodation. Extraocular muscles are intact bilaterally. Right eye inner corner discomfort, swelling and discomfort. No obvious injection or discharge. There is no subconjunctival hemorrhage, exudate and sclera non-icteric. ENT: Hearing grossly intact. Nose without bleeding, purulent discharge or deviation. Facial sinuses nontender to palpate. Mucous membrane slightly dry, no mucosal lesion. Throat without erythema, tonsillar hypertrophy or exudate. Uvula in midline, airway patent. Neck: Trachea in midline. No JVD, non-tender without lymphadenopathy. No masses or thyroid megaly. Supple, non-tender and no meningeal signs. CARDIAC: Normal regular rate and rhythm without murmurs, gallops, or rubs. No chest wall tenderness. No peripheral edema, cyanosis or pallor. Capillary refill is less than 2 seconds. RESPIRATORY: Lungs are clear to auscultate bilaterally. No cough, wheezes, rales, or rhonchi. No stridor, respiratory distress, increase work of breathing, or accessary muscle used. ABD: Abdomen soft and non-distended. Mild discomfort in right upper quadrant to palpate. No guarding or rebound tenderness to palpate. Bowel sounds are normal in all 4 quadrants. There is no palpable masses or organomegaly. EXT: Full painless ROM of all extremities with no loss of sensation, strength, effusion or edema. SKIN: Warm, dry, normal color for patient. No erythema, lesions or rash over visible areas. BACK: No deformity or crepitance. Right abdominal pain with right flank percussion. NEUROLOGICAL: Alert and oriented to place, time and person. Sensation and motor function intact bilaterally. No facial droops, dysphasia. PSYCHIATRIC: Good judgement and reason, without hallucinations, abnormal affect or abnormal behaviors during the examination. Patient is not suicidal. Initial Vital Signs Initial Vital Signs: Vital Signs Temperature 98.2 F 02/25/20 10:18 Pulse Rate 83 02/25/20 10:18 Respiratory Rate 15 02/25/20 10:18 Blood Pressure 152/103 H 02/25/20 10:18 Pulse Oximetry 99 02/25/20 10:18 <Colleen Degroot DO - Last Filed: 02/25/20 19:00> Initial Vital Signs Initial Vital Signs: Vital Signs Temperature 98.2 F 02/25/20 10:18 Pulse Rate 83 02/25/20 10:18 Respiratory Rate 15 02/25/20 10:18 Blood Pressure 152/103 H 02/25/20 10:18 Pulse Oximetry 99 02/25/20 10:18 Scores <Attila MoncadaRAY FitzgeraldP - Last Filed: 02/25/20 13:18> GCS Allan coma scale eye opening: Spontaneous [place] coma scale verbal response: Orientated [place] coma scale motor response: Obey commands Allan coma scale total score: 15 NIH Stroke Scale Level of Conciousness: Alert, keenly responsive Ask month/age: Answers both questions correctly. Open/close eyes, close hand: Performs both tasks correctly Best gaze horizontal: Normal Visual logan: No visual loss Facial palsy: Normal symetrical movement Left arm drift: No drift for full 10 sec Right arm drift: No drift for full 10 sec Left leg drift: No drift for full 5 sec Right leg drift: No drift for full 5 sec Limb ataxia: Absent Sensory on face/arms/legs: Normal, no sensory loss Best language: No aphasia, normal Dysarthria: Normal Extinction or inattention: No abnormality Total NIH Stroke scale score: 0 qSOFA Altered Mental Status (GCS <15): No Respiratory rate greater than/equal to 22: No Systolic blood pressure less than or equal to 100: No qSOFA Total: 0 0-1 Not High Risk 1-3 High risk Course <RAY BravoP - Last Filed: 02/25/20 13:18> Orders Ordered: ED Orders 02/25/20 10:15 Urine Microscopic Stat 02/25/20 10:40 Complete Blood Count AUTO DIFF Stat Comprehensive Metabolic Panel Stat Lactate (Lactic Acid) Stat Lipase Stat NT-proBNP (BNP-Adult 18+) Stat 02/25/20 11:31 CT kidney ureter bladder (KUB) Stat Discontinued Medications Sodium Chloride (Normal Saline 0.9%) 500 mls @ 1,000 mls/hr IV BOLUS ONE Stop: 02/25/20 11:51 Last Admin: 02/25/20 11:37 Dose: 1,000 mls/hr Documented by: BTONER Vital Signs Vital signs: Vital Signs - 8 hr 02/25/20 12:58 Pulse Rate 60 Blood Pressure 159/94 H Pulse Oximetry 99 <Colleen Degroot DO - Last Filed: 02/25/20 19:00> Orders Ordered: ED Orders 02/25/20 10:15 Urine Microscopic Stat 02/25/20 10:40 Complete Blood Count AUTO DIFF Stat Comprehensive Metabolic Panel Stat Lactate (Lactic Acid) Stat Lipase Stat NT-proBNP (BNP-Adult 18+) Stat 02/25/20 11:31 CT kidney ureter bladder (KUB) Stat Discontinued Medications Sodium Chloride (Normal Saline 0.9%) 500 mls @ 1,000 mls/hr IV BOLUS ONE Stop: 02/25/20 11:51 Last Admin: 02/25/20 11:37 Dose: 1,000 mls/hr Documented by: BTONER Vital Signs Vital signs: Vital Signs - 8 hr 02/25/20 12:58 Pulse Rate 60 Blood Pressure 159/94 H Pulse Oximetry 99 MDM - Back Pain/Injury <JESUS ALBERTO Bravo - Last Filed: 02/25/20 13:18> Differential Diagnosis Differential diagnosis: Likely lumbar radiculopathy, strain of lumbar region, renal colic, pyelonephritis, thoracic back pain and other (shingles, hepatitis, rejection transplant) Medical Records Attestation: I reviewed the patient's medical records. Lab Data Attestation: I reviewed the patient's lab results. Result diagrams: 02/25/20 10:40 02/25/20 10:40 Labs: Lab Results 02/25/20 02/25/20 02/25/20 Range/Units 10:15 10:40 10:40 WBC 4.3 L (4.5-11.0) X10^3/uL RBC 3.93 L (4.0-5.2) X10^6/uL Hgb 12.6 (12.0-16.0) g/dL Hct 37.0 (36-46) % MCV 94.3 (80-100) fL MCH 32.0 (26-34) PG MCHC 33.9 (30-36) % RDW 14.1 (11.6-14.8) % Plt Count 239 (150-400) X10^3/uL Neut % (Auto) 60.8 (50-75) % Lymph % (Auto) 28.6 (25-40) % [place] % (Auto) 6.6 (3-14) % Eos % (Auto) 3.1 (2-4) % Baso % (Auto) 0.9 (0-2) % Neut # (Auto) 2600 (6078-3265) /uL Lymph # (Auto) 1200 (7433-4478) /uL [place] # (Auto) 300 (0-900) /uL Eos # (Auto) 100 (0-450) /uL Baso # (Auto) 0 (0-100) /uL Sodium 141 (137-145) mmol/L Potassium 4.3 (3.4-5.1) mmol/L Chloride 107 (98-107) mmol/L Carbon Dioxide 24 (22-32) mmol/L BUN 21 H (7-17) mg/dL Creatinine 1.53 H (0.52-1.04) mg/dL Estimated GFR 34.7 L (>60) mL/min BUN/Creatinine Ratio 13.7 (6-22) Glucose 105 H (70-100) mg/dL Lactate (0.7-2.1) mmol/L Calcium 9.5 (8.4-10.2) mg/dL Total Bilirubin 1.2 (0.2-1.3) mg/dL AST 29 (14-36) IU/L ALT 21 (<35) IU/L Alkaline Phosphatase 61 (38-126) U/L NT-Pro-B Natriuret Pep 186 H (<125) pg/mL Total Protein 8.1 (6.3-8.2) g/dL Albumin 4.7 (3.5-5.0) g/dL Globulin 3.4 (1.7-4.1) g/dL Albumin/Globulin Ratio 1.4 (1.0-2.8) Lipase 12 L (23-300) U/L Urine RBC None seen (0-5/HPF) Urine WBC None seen (0-5/HPF) Ur Squamous Epith Cells 1-5 /hpf (0-5/HPF) Amorphous Sediment 1+ Urine Bacteria None seen (None) Ur Culture Indicated? Cult not indicated 02/25/20 Range/Units 10:40 WBC (4.5-11.0) X10^3/uL RBC (4.0-5.2) X10^6/uL Hgb (12.0-16.0) g/dL Hct (36-46) % MCV (80-100) fL MCH (26-34) PG MCHC (30-36) % RDW (11.6-14.8) % Plt Count (150-400) X10^3/uL Neut % (Auto) (50-75) % Lymph % (Auto) (25-40) % [place] % (Auto) (3-14) % Eos % (Auto) (2-4) % Baso % (Auto) (0-2) % Neut # (Auto) (7990-4623) /uL Lymph # (Auto) (8375-5473) /uL [place] # (Auto) (0-900) /uL Eos # (Auto) (0-450) /uL Baso # (Auto) (0-100) /uL Sodium (137-145) mmol/L Potassium (3.4-5.1) mmol/L Chloride (98-107) mmol/L Carbon Dioxide (22-32) mmol/L BUN (7-17) mg/dL Creatinine (0.52-1.04) mg/dL Estimated GFR (>60) mL/min BUN/Creatinine Ratio (6-22) Glucose (70-100) mg/dL Lactate 0.6 L (0.7-2.1) mmol/L Calcium (8.4-10.2) mg/dL Total Bilirubin (0.2-1.3) mg/dL AST (14-36) IU/L ALT (<35) IU/L Alkaline Phosphatase (38-126) U/L NT-Pro-B Natriuret Pep (<125) pg/mL Total Protein (6.3-8.2) g/dL Albumin (3.5-5.0) g/dL Globulin (1.7-4.1) g/dL Albumin/Globulin Ratio (1.0-2.8) Lipase (23-300) U/L Urine RBC (0-5/HPF) Urine WBC (0-5/HPF) Ur Squamous Epith Cells (0-5/HPF) Amorphous Sediment Urine Bacteria (None) Ur Culture Indicated? Urine Dip Bedside Urine Glucose Negative Bedside Urine Bilirubin - Negative Bedside Urine Ketone - Negative Urine Specific [place] 1.010 Bedside Urine Occult Blood - Negative Bedside Urine pH 6.0 Bedside Urine Protein - Negative Bedside Urine Urobilinogen - Negative Bedside Urine Nitrite - Negative Bedside Urine Leukocytes - Negative Esterase Imaging Data CT-KUB: Radiologist's Impression: Kseha Jo 59 F [address] [id number] Scan ReportSigned Patient: Kesha Jo AMR#: [id number]: 1960cct:[id number]/Sex: 59 / FDate of Service: 02/25/20Loc: EDAccession Number: [id number] Procedure: CT kidney ureter bladder (KUB) Ordering Provider: Attila Bright PROCEDURE: CT KIDNEY URETER BLADDER (KUB) INDICATIONS: right flank pain, hx of renal/liver transplant TECHNIQUE: Noncontrast 5 mm thick sections acquired from the diaphragms to the symphysis. 5 mm thick coronal and sagittal reformats were then performed. For radiation dose reduction, the following was used: automated exposure control, adjustment of mA and/or kV according to patient size. COMPARISON: None. FINDINGS: Image quality: Excellent. Lung bases: Lung bases are clear. Heart size is normal. Urinary system: Both kidneys are small [place] in size and the right iliac fossa renal transplant is normal in size. No kidney stones at each of the 3 kidneys. No hydronephrosis or perinephric fat stranding. Both ureters appear non-dilated throughout their expected courses. Bladder wall thickness is normal; no calcified bladder stones. Other solid organs: Liver is normal in size. Gallbladder is not seen and likely is absent. Pancreas is normal in contours. Spleen is normal in size. No adrenal nodules. Peritoneum and bowel: Unenhanced bowel loops demonstrate normal wall thickness and caliber. No free fluid or air. Nodes and vessels: No retroperitoneal or mesenteric adenopathy by size criteria. Aorta and inferior vena cava are normal in caliber. Abdominal wall: No ventral hernias. Pelvis: No free pelvic fluid. No inguinal hernias or adenopathy. Bones: No suspicious bony lesions. No vertebral body compression fractures. IMPRESSION: Dimin[place] kidneys, normal size right iliac fossa renal transplant, no hydronephrosis or nephrolithiasis involving the 3 kidneys. A current source of asymmetric right-sided pain is not identified. The study is performed without oral or intravenous contrast and therefore anatomic detail of the solid organs is quite limited. Note is made of pancreatic calcifications consistent with chronic pancreatitis. If fine usual symptoms persist follow-up by chronic tear asked enhanced imaging may become necessary.. Dictated by: Donald Meléndez M.D. on 02/25/2020 at 11:44 Approved by: Donald Meléndez M.D. on 02/25/2020 at 11:54 [facility] Narrative Medical decision making narrative: This is a 59-year-old female who presents to ED with abdominal bloating, right flank discomfort radiating to right abdomen in cessation. Patient was recently treated for left flank shingles. She is currently on immuno depressant medications after she had liver and kidney transplant about a year ago. Patient does not endorses constitutional symptoms. Patient denies urinary symptoms. There is no rash either side of flank or abdomen. When right flank was percussed, patient reports mild discomfort in right mid to upper abdomen. No signs of jaundice or icterus. No leukocytosis. Lactate was not elevated today. Normal LFTs with lipase. Normal bilirubin and protein. ProBNP was unremarkable of 186. Slightly decreased in kidney function test from her baseline. Previous creatinine range from 0.99 through 1.3 . Today's creatinine of 1.53 with BUN of 21. Given patient's medical and s urgical history, KUB obtained. CT results pelvic fluid, normal liver in size, normal pancreas, normal spleen, unremarkable bowel loops. Kidney shows no hydronephrosis, no stones or perinephric fat stranding. It is not clear for patient's symptoms. Patient's symptoms been going on for 3 and half weeks and deferred treating her with antiviral and she is currently taking gabapentin. Patient was medicated with IV fluid 500 mL bolus. Advised to follow-up up with PCP for recheck kidney function since she is currently being treated with Septra DS for UTI and this can cause slightly decrease in renal function. Patient is afebrile, within normal limits of vital signs. Strict return precautions were discussed with patient and patient verbalized understanding in agreement with treatment plan. <Colleen Degroot, DO - Last Filed: 02/25/20 19:00> Lab Data Labs: Lab Results 02/25/20 02/25/20 02/25/20 Range/Units 10:15 10:40 10:40 WBC 4.3 L (4.5-11.0) X10^3/uL RBC 3.93 L (4.0-5.2) X10^6/uL Hgb 12.6 (12.0-16.0) g/dL Hct 37.0 (36-46) % MCV 94.3 (80-100) fL MCH 32.0 (26-34) PG MCHC 33.9 (30-36) % RDW 14.1 (11.6-14.8) % Plt Count 239 (150-400) X10^3/uL Neut % (Auto) 60.8 (50-75) % Lymph % (Auto) 28.6 (25-40) % [place] % (Auto) 6.6 (3-14) % Eos % (Auto) 3.1 (2-4) % Baso % (Auto) 0.9 (0-2) % Neut # (Auto) 2600 (4368-0379) /uL Lymph # (Auto) 1200 (8610-8373) /uL [place] # (Auto) 300 (0-900) /uL Eos # (Auto) 100 (0-450) /uL Baso # (Auto) 0 (0-100) /uL Sodium 141 (137-145) mmol/L Potassium 4.3 (3.4-5.1) mmol/L Chloride 107 (98-107) mmol/L Carbon Dioxide 24 (22-32) mmol/L BUN 21 H (7-17) mg/dL Creatinine 1.53 H (0.52-1.04) mg/dL Estimated GFR 34.7 L (>60) mL/min BUN/Creatinine Ratio 13.7 (6-22) Glucose 105 H (70-100) mg/dL Lactate (0.7-2.1) mmol/L Calcium 9.5 (8.4-10.2) mg/dL Total Bilirubin 1.2 (0.2-1.3) mg/dL AST 29 (14-36) IU/L ALT 21 (<35) IU/L Alkaline Phosphatase 61 (38-126) U/L NT-Pro-B Natriuret Pep 186 H (<125) pg/mL Total Protein 8.1 (6.3-8.2) g/dL Albumin 4.7 (3.5-5.0) g/dL Globulin 3.4 (1.7-4.1) g/dL Albumin/Globulin Ratio 1.4 (1.0-2.8) Lipase 12 L (23-300) U/L Urine RBC None seen (0-5/HPF) Urine WBC None seen (0-5/HPF) Ur Squamous Epith Cells 1-5 /hpf (0-5/HPF) Amorphous Sediment 1+ Urine Bacteria None seen (None) Ur Culture Indicated? Cult not indicated 02/25/20 Range/Units 10:40 WBC (4.5-11.0) X10^3/uL RBC (4.0-5.2) X10^6/uL Hgb (12.0-16.0) g/dL Hct (36-46) % MCV (80-100) fL MCH (26-34) PG MCHC (30-36) % RDW (11.6-14.8) % Plt Count (150-400) X10^3/uL Neut % (Auto) (50-75) % Lymph % (Auto) (25-40) % [place] % (Auto) (3-14) % Eos % (Auto) (2-4) % Baso % (Auto) (0-2) % Neut # (Auto) (9415-1905) /uL Lymph # (Auto) (4963-3892) /uL [place] # (Auto) (0-900) /uL Eos # (Auto) (0-450) /uL Baso # (Auto) (0-100) /uL Sodium (137-145) mmol/L Potassium (3.4-5.1) mmol/L Chloride (98-107) mmol/L Carbon Dioxide (22-32) mmol/L BUN (7-17) mg/dL Creatinine (0.52-1.04) mg/dL Estimated GFR (>60) mL/min BUN/Creatinine Ratio (6-22) Glucose (70-100) mg/dL Lactate 0.6 L (0.7-2.1) mmol/L Calcium (8.4-10.2) mg/dL Total Bilirubin (0.2-1.3) mg/dL AST (14-36) IU/L ALT (<35) IU/L Alkaline Phosphatase (38-126) U/L NT-Pro-B Natriuret Pep (<125) pg/mL Total Protein (6.3-8.2) g/dL Albumin (3.5-5.0) g/dL Globulin (1.7-4.1) g/dL Albumin/Globulin Ratio (1.0-2.8) Lipase (23-300) U/L Urine RBC (0-5/HPF) Urine WBC (0-5/HPF) Ur Squamous Epith Cells (0-5/HPF) Amorphous Sediment Urine Bacteria (None) Ur Culture Indicated? Urine Dip Bedside Urine Glucose Negative Bedside Urine Bilirubin - Negative Bedside Urine Ketone - Negative Urine Specific [place] 1.010 Bedside Urine Occult Blood - Negative Bedside Urine pH 6.0 Bedside Urine Protein - Negative Bedside Urine Urobilinogen - Negative Bedside Urine Nitrite - Negative Bedside Urine Leukocytes - Negative Esterase Discharge Plan Departure Patient Disposition: Home Clinical Impression: Flank pain Abdominal pain Qualifiers: Abdominal location: right upper quadrant Qualified Code(s): R10.11 - Right upper quadrant pain Instructions: DI for Abdominal Pain-Adult, DI for Flank Pain Activity Restrictions/Additional Instructions: You have been diagnosed with [right flank and abdominal pain for last 3 and half weeks. Labs are assuring except slightly decreased kidney function test. KUB CT is assuring as well. No indication of kidney or liver abnormality. With your medication including gabapentin. You can take [id number] Tylenol or ibuprofen as needed occasionally for pain or fever. No indications for urinary tract infection but urine culture is pending.]. What to do: *Take your medications as directed. *Follow up with your primary care provider in 2-3 days, call for an appointment. Let them know you were seen in the ED and that we asked you to be seen in follow up. Please recheck kidney function test in 2-3 days. *Return to ED if you have any new, worsening, or concerning symptoms, such as [chest pain, breathing difficulty, unable to tolerate fluids, increasing abdom inal girth, decreased urine output, jaundice, feeling like faint, fever or any acute concerns.]. Prescriptions: No Action fluticasone propionate [Flovent HFA] 12 GM HFA aerosol inhaler 2 spray INH BID Qty: 0 RF: 0 hydrocodone-acetaminophen [[place]] 5 MG/325 MG tablet 1 tab PO Q6HP PRNQty: 30 RF: 0 Prilosec OTC 20 mg tablet,delayed release (DR/EC) 20 mg PO QDAY Qty: 90 RF: 3 benzonatate [Tessalon Perles] 100 mg capsule 100 mg PO TID PRN (Reason: cough) Qty: 90 RF: 3 tacrolimus [Prograf] 1 mg capsule 2 mg PO BID Qty: 120 RF: 2 Creon 12,000-38,000 -60,000 unit capsule,delayed release(DR/EC) See Rx Instructions .ROUTE .COMPLEX Qty: 540 RF: 3 estradiol [Vagifem] 10 mcg tablet 10 mcg Vaginal 2XW Qty: 8 RF: 11 mycophenolate sodium 180 mg tablet,delayed release (DR/EC) 180 mg PO SEE INSTRUCTIONS Qty: 180 RF: 3 albuterol sulfate [Proventil HFA] 90 mcg/actuation HFA aerosol inhaler 2 puff inhalation BID PRN (Reason: shortness of breath or wheezing) Qty: 18 RF: 2 sulfamethoxazole-trimethoprim 800-160 mg tablet 1 tab PO BID Qty: 20 RF: 0 gabapentin 300 mg capsule 300 mg PO BID Qty: 30 RF: 0 prednisone 10 mg tablets,dose pack See Rx Instructions .ROUTE .COMPLEX Qty: 15 RF: 0 tramadol 50 mg tablet 50 mg PO Q6H PRN (Reason: pain) Qty: 10 RF: 0 Referrals: Mendoza Lewis MD [Primary Care Provider] - <Colleen Degroot DO - Last Filed: 02/25/20 19:00> Cosign ED Attending Lars Attestation: I was immediately available in the department for consultation. Documentation has been reviewed.
[2020-02-25 10:53] LABS: Add Manual Diff / Slide Review NO; Basophils Absolute Auto 0 /uL (0-100); Basophils Percent Auto 0.9 % (0-2); Eosinophils Absolute Auto 100 /uL (0-450); Eosinophils Percent Auto 3.1 % (2-4); Hemoglobin 12.6 g/dL (12.0-16.0); Lymphocytes Absolute Auto 1200 /uL (1100-4500); Lymphocytes Percent Auto 28.6 % (25-40); Mean Corpuscular HGB Conc 33.9 % (30-36); Mean Corpuscular Volume 94.3 fL (80-100); Monocytes Absolute Auto 300 /uL (0-900); Monocytes Percent Auto 6.6 % (3-14); Neutrophils Absolute Auto 2600 /uL (1500-7000); Neutrophils Percent Auto 60.8 % (50-75); Platelet Count 239 X10^3/uL (150-400); Red Blood Cell Count 3.93 X10^6/uL (4.0-5.2); Red Cell Distribution Width 14.1 % (11.6-14.8); White Blood Cell Count 4.3 X10^3/uL (4.5-11.0)
--- NOTE | 2020-02-25 11:04 | PC.NURSE ---
pt has recently had shingles to left flank, pt has had a liver and kidney transplant, pt had symptoms for a uti and her dr called in a script. pt has been taking for 3 days. pt not feeling better, pt feels bloated as well.
[2020-02-25 11:05] LABS: Alanine Aminotransferase 21 IU/L (<35); Albumin 4.7 g/dL (3.5-5.0); Albumin Globulin Ratio 1.4 (1.0-2.8); Alkaline Phosphatase 61 U/L (38-126); Aspartate Aminotransferase 29 IU/L (14-36); BUN Creatinine Ratio 13.7 (6-22); Bilirubin Total 1.2 mg/dL (0.2-1.3); Blood Urea Nitrogen 21 mg/dL (7-17); Calcium 9.5 mg/dL (8.4-10.2); Carbon Dioxide 24 mmol/L (22-32); Chloride 107 mmol/L (98-107); Estimated Glomerular Filt Rate 34.7 mL/min (>60); Globulin 3.4 g/dL (1.7-4.1); Glucose 105 mg/dL (70-100); HEMOLYSIS < 15 (0-50); Lactate (Lactic Acid) 0.6 mmol/L (0.7-2.1); Potassium 4.3 mmol/L (3.4-5.1); Sodium 141 mmol/L (137-145); Total Protein 8.1 g/dL (6.3-8.2)
[2020-02-25 11:12] LABS: NT-proBNP (BNP-Adult 18+) 186 pg/mL (<125)
[2020-02-25 11:15] LABS: Lipase 12 U/L (23-300)
--- NOTE | 2020-02-25 11:31 | DI.CT.S_ITS ---
PROCEDURE: CT KIDNEY URETER BLADDER (KUB) INDICATIONS: right flank pain, hx of renal/liver transplant TECHNIQUE: Noncontrast 5 mm thick sections acquired from the diaphragms to the symphysis. 5 mm thick coronal and sagittal reformats were then performed. For radiation dose reduction, the following was used: automated exposure control, adjustment of mA and/or kV according to patient size. COMPARISON: None. FINDINGS: Image quality: Excellent. Lung bases: Lung bases are clear. Heart size is normal. Urinary system: Both kidneys are small shoshone-bannock al in size and the right iliac fossa renal transplant is normal in size. No kidney stones at each of the 3 kidneys. No hydronephrosis or perinephric fat stranding. Both ureters appear non-dilated throughout their expected courses. Bladder wall thickness is normal; no calcified bladder stones. Other solid organs: Liver is normal in size. Gallbladder is not seen and likely is absent. Pancreas is normal in contours. Spleen is normal in size. No adrenal nodules. Peritoneum and bowel: Unenhanced bowel loops demonstrate normal wall thickness and caliber. No free fluid or air. Nodes and vessels: No retroperitoneal or mesenteric adenopathy by size criteria. Aorta and inferior vena cava are normal in caliber. Abdominal wall: No ventral hernias. Pelvis: No free pelvic fluid. No inguinal hernias or adenopathy. Bones: No suspicious bony lesions. No vertebral body compression fractures. IMPRESSION: Diminutive shoshone-bannock kidneys, normal size right iliac fossa renal transplant, no hydronephrosis or nephrolithiasis involving the 3 kidneys. A current source of asymmetric right-sided pain is not identified. The study is performed without oral or intravenous contrast and therefore anatomic detail of the solid organs is quite limited. Note is made of pancreatic calcifications consistent with chronic pancreatitis. If fine usual symptoms persist follow-up by chronic tear asked enhanced imaging may become necessary.. Dictated by: Donald Meléndez M.D. on 02/25/2020 at 11:44 Approved by: Donald Meléndez M.D. on 02/25/2020 at 11:54
[2020-02-25 11:34] LABS: Bacteria Urine None Seen; RBC Urine None Seen (0-5/HPF); WBC Urine None Seen (0-5/HPF)
[2020-02-25] MEDS: SODIUM CHLORIDE 0.9% 500 ML 1000 ML IV (11:37)
[2020-02-25 11:43] LABS: Amorphous Sediment Urine 1+; Culture Indicated Urine Cult Not Indicated; Squamous Epithelial Cell Urine 1-5 /HPF (0-5/HPF)
[2020-02-25 12:58] VITALS: BP 159/94; PULSE 60; O2SAT 99
--- NOTE | 2020-03-15 10:30 | PC.NURSE ---
late entry 02/25/20 Ns of 500ml IV infused and completed at 1230.
== END 2020-02-25 12:58 | disposition home or self-care (01) ==
PROVIDERS: Emergency Provider Nurse Practitioner Family; PCP Internal Medicine
DX: R10.11 Right upper quadrant pain (principal); R42 Dizziness and giddiness; R79.89 Other specified abnormal findings of blood chemistry; Z94.0 Kidney transplant status; Z94.4 Liver transplant status; Z86.19 Personal history of other infectious and parasitic diseases
CPT/HCPCS: 36415; 74176; 80053; 81003; 81015; 83605; 83690; 83880; 85025; 96360; 99283; 99284

== ENCOUNTER → 2020-05-24 13:59 | Outpatient (CLI) | payer OTHER, MEDICAID, SELFPAY ==
[2020-05-24 14:39] LABS: COVID19 -Nasal RAPID Negative (Negative)
== END ==
PROVIDERS: PCP Internal Medicine; Visit Provider Registered Nurse Diabetes Educator
DX: Z20.822 Contact with and (suspected) exposure to COVID-19 (principal)
CPT/HCPCS: 87635

== ENCOUNTER → 2020-05-24 14:55 | Outpatient (CLI) | payer OTHER, MEDICAID, SELFPAY ==
--- NOTE | 2020-05-24 14:56 | DI.RAD.S_ITS ---
PROCEDURE: XR CHEST 2V INDICATIONS: worsening cough/SOB. Please R/O pneumonia. TECHNIQUE: 2 views of the chest were acquired. COMPARISON: [facility], CR, XR CHEST 1V, 02/08/2020, 9:30. FINDINGS: Surgical changes and devices: Metallic substances in the upper abdomen have the appearance suggesting possible previous embolization coils. Lungs and pleura: Lungs are clear. No pleural effusions or pneumothorax. Mediastinum: Mediastinal contours are normal. Heart size is normal. Bones and chest wall: No suspicious bony abnormalities. Soft tissues appear unremarkable. IMPRESSION: No evidence acute pulmonary process. Dictated by: Luis Miguel Sen M.D. on 05/24/2020 at 15:28 Approved by: Luis Miguel Sen M.D. on 05/24/2020 at 15:29
== END ==
PROVIDERS: PCP Internal Medicine; Referring Provider Registered Nurse Diabetes Educator; Visit Provider Registered Nurse Diabetes Educator
DX: R05 Cough (principal); R06.02 Shortness of breath; Z20.822 Contact with and (suspected) exposure to COVID-19
CPT/HCPCS: 71046; 87635

== ENCOUNTER → 2020-11-24 11:02 | Outpatient (CLI) | payer OTHER, MEDICAID, SELFPAY | PROVIDERS: PCP Internal Medicine; Visit Provider Nurse Practitioner | DX: R30.0 Dysuria (principal); R35.0 Frequency of micturition | CPT/HCPCS: 87086 ==

== ENCOUNTER → 2020-11-24 11:45 | Outpatient (CLI) | payer OTHER, MEDICAID, SELFPAY ==
[2020-11-24 11:55] LABS: Add Manual Diff / Slide Review NO; Basophils Absolute Auto 0 /uL (0-100); Basophils Percent Auto 0.3 % (0-2); Eosinophils Absolute Auto 0 /uL (0-450); Eosinophils Percent Auto 0.5 % (2-4); Hematocrit 34.3 % (36-46); Hemoglobin 11.4 g/dL (12.0-16.0); Lymphocytes Absolute Auto 1100 /uL (1100-4500); Lymphocytes Percent Auto 11.5 % (25-40); Mean Corpuscular HGB Conc 33.3 % (30-36); Mean Corpuscular Hemoglobin 31.2 PG (26-34); Mean Corpuscular Volume 93.6 fL (80-100); Monocytes Absolute Auto 800 /uL (0-900); Monocytes Percent Auto 8.4 % (3-14); Neutrophils Absolute Auto 7400 /uL (1500-7000); Neutrophils Percent Auto 79.3 % (50-75); Platelet Count 260 X10^3/uL (150-400); Red Blood Cell Count 3.66 X10^6/uL (4.0-5.2); Red Cell Distribution Width 13.3 % (11.6-14.8); White Blood Cell Count 9.3 X10^3/uL (4.5-11.0)
[2020-11-24 12:10] LABS: Alanine Aminotransferase 17 IU/L (<35); Albumin 4.4 g/dL (3.5-5.0); Albumin Globulin Ratio 1.3 (1.0-2.8); Alkaline Phosphatase 59 U/L (38-126); Aspartate Aminotransferase 23 IU/L (14-36); BUN Creatinine Ratio 20.2 (6-22); Bilirubin Total 1.7 mg/dL (0.2-1.3); Blood Urea Nitrogen 26 mg/dL (7-17); Calcium 9.2 mg/dL (8.4-10.2); Carbon Dioxide 29 mmol/L (22-32); Chloride 103 mmol/L (98-107); Estimated Glomerular Filt Rate 42.2 mL/min (>60); Globulin 3.5 g/dL (1.7-4.1); Glucose 114 mg/dL (80-110); HEMOLYSIS < 15 (0-50); Potassium 5.1 mmol/L (3.4-5.1); Sodium 137 mmol/L (137-145); Total Protein 7.9 g/dL (6.3-8.2)
== END ==
PROVIDERS: PCP Internal Medicine; Referring Provider Nurse Practitioner; Visit Provider Nurse Practitioner
DX: R10.9 Unspecified abdominal pain (principal); R30.0 Dysuria; R35.0 Frequency of micturition
CPT/HCPCS: 36415; 80053; 85025; 87077; 87086; 87186

== ENCOUNTER → 2021-01-02 09:41 | Outpatient (CLI) | payer OTHER, MEDICAID, SELFPAY ==
[2021-01-02 10:09] LABS: Appearance Urine UA CLEAR; Bilirubin Urine UA NEGATIVE (NEGATIVE); Color Urine UA YELLOW; Glucose Urine UA NEGATIVE (Negative); Ketones Urine UA NEGATIVE (NEGATIVE); Leukocyte Esterase Urine UA NEGATIVE (NEGATIVE); Nitrite Urine UA NEGATIVE (Negative); Occult Blood Urine UA NEGATIVE (Negative); Protein Urine UA NEGATIVE (Negative); Specific Gravity Urine UA 1.015 (1.000-1.035); Urobilinogen Urine UA 0.2 E.U./dL (0.2)
[2021-01-02 10:19] LABS: Bacteria Urine None Seen; Culture Indicated Urine Cult Not Indicated; RBC Urine None Seen (0-5/HPF); Urine Comments Microscopic Normal; WBC Urine None Seen (0-5/HPF)
== END ==
PROVIDERS: PCP Internal Medicine; Referring Provider Internal Medicine; Visit Provider Internal Medicine
DX: N30.01 Acute cystitis with hematuria (principal)
CPT/HCPCS: 81001; 87086

== ENCOUNTER → 2021-04-17 14:49 | Outpatient (CLI) | payer OTHER, MEDICAID, SELFPAY ==
[2021-04-17 15:46] LABS: BUN Creatinine Ratio 17.2 (6-22); Blood Urea Nitrogen 25 mg/dL (7-17); Calcium 10.2 mg/dL (8.4-10.2); Carbon Dioxide 27 mmol/L (22-32); Chloride 105 mmol/L (98-107); Estimated Glomerular Filt Rate 36.8 mL/min (>60); Glucose 114 mg/dL (80-110); HEMOLYSIS < 15 (0-50); Sodium 140 mmol/L (137-145)
== END ==
PROVIDERS: PCP Internal Medicine; Referring Provider Urology; Visit Provider Urology
DX: N39.0 Urinary tract infection, site not specified (principal); K86.1 Other chronic pancreatitis; R33.9 Retention of urine, unspecified; J45.40 Moderate persistent asthma, uncomplicated; F10.11 Alcohol abuse, in remission; Z94.0 Kidney transplant status; Z94.4 Liver transplant status; Z87.891 Personal history of nicotine dependence
CPT/HCPCS: 36415; 51798; 80048; 81002; 99215

== ENCOUNTER 2021-04-27 08:31 | Emergency (ER) | payer OTHER, MEDICAID, SELFPAY ==
[2021-04-27] VITALS (14 sets, daily range): BP systolic 137–161; BP diastolic 80–95; PULSE 62–95; RESP 10–28; TEMP 36.6; O2SAT 94–100; BMI 27.4
[2021-04-27 09:20] LABS: Alanine Aminotransferase 26 IU/L (<35); Albumin 4.9 g/dL (3.5-5.0); Albumin Globulin Ratio 1.3 (1.0-2.8); Alkaline Phosphatase 80 U/L (38-126); Aspartate Aminotransferase 31 IU/L (14-36); BUN Creatinine Ratio 16.8 (6-22); Bilirubin Total 1.3 mg/dL (0.2-1.3); Blood Urea Nitrogen 24 mg/dL (7-17); Calcium 9.6 mg/dL (8.4-10.2); Carbon Dioxide 26 mmol/L (22-32); Chloride 105 mmol/L (98-107); Estimated Glomerular Filt Rate 37.4 mL/min (>60); Globulin 3.9 g/dL (1.7-4.1); Glucose 112 mg/dL (80-110); HEMOLYSIS < 15 (0-50); Lipase 16 U/L (23-300); Potassium 4.8 mmol/L (3.4-5.1); Sodium 139 mmol/L (137-145); Total Protein 8.8 g/dL (6.3-8.2)
[2021-04-27 09:21] LABS: Add Manual Diff / Slide Review NO; Basophils Absolute Auto 0 /uL (0-100); Basophils Percent Auto 0.8 % (0-2); Eosinophils Absolute Auto 100 /uL (0-450); Eosinophils Percent Auto 2.2 % (2-4); Hematocrit 36.8 % (36-46); Hemoglobin 12.3 g/dL (12.0-16.0); Lymphocytes Absolute Auto 1500 /uL (1100-4500); Lymphocytes Percent Auto 26.4 % (25-40); Mean Corpuscular HGB Conc 33.4 % (30-36); Mean Corpuscular Hemoglobin 30.2 PG (26-34); Mean Corpuscular Volume 90.5 fL (80-100); Monocytes Absolute Auto 300 /uL (0-900); Monocytes Percent Auto 5.9 % (3-14); Neutrophils Absolute Auto 3600 /uL (1500-7000); Neutrophils Percent Auto 64.7 % (50-75); Platelet Count 300 X10^3/uL (150-400); Red Blood Cell Count 4.07 X10^6/uL (4.0-5.2); Red Cell Distribution Width 13.5 % (11.6-14.8); White Blood Cell Count 5.6 X10^3/uL (4.5-11.0)
--- NOTE | 2021-04-27 09:29 | DI.CT.S_ITS ---
PROCEDURE: CT ABDOMEN PELVIS WO CON INDICATIONS: Epigastric pain/pancreatitis TECHNIQUE: Axial sections were acquired from the lung bases to the pubic symphysis. Coronal and sagittal reformats were performed. For radiation dose reduction, the following was used: automated exposure control, adjustment of mA and/or kV according to patient size. COMPARISON: [facility], CT, CT KIDNEY URETER BLADDER (KUB), 02/25/2020, 11:24. [facility], MR, MR ABDOMEN PANCREAS PROTOCOL, 01/16/2021, 12:30. FINDINGS: Image quality: Excellent. Lung bases: Unremarkable. Heart: No significant findings. URINARY: Kidneys and ureters: The mi'kmaq kidneys are atrophic. No kidney masses are seen. There is no hydronephrosis. There is a right lower quadrant kidney transplant that demonstrates normal size, without hydronephrosis. No significant perinephric fat stranding is seen. The appearance of this transplant kidney is not significantly different from the CT examination dated 02/25/2020. Bladder: Normal wall thickness. No stones. ABDOMEN: Liver: Numerous clips are seen adjacent to the liver, consistent with the known history of liver transplant. Gallbladder: Removed. Biliary ducts: Unremarkable. Pancreas: The pancreas is abnormal, with numerous calcifications along its course. The pancreas overall is atrophic. No peripancreatic inflammatory changes are seen. Spleen: Unremarkable. Adrenal Glands: Unremarkable. Stomach and Bowel: Stomach, small bowel loops, and colon are unremarkable. Peritoneum: No abnormal intraperitoneal fluid. No free air. Ventral Wall: A mild periumbilical hernia is seen, containing fat. Abdominal Nodes: No enlarged retroperitoneal or mesenteric lymph nodes. Vessels: Aorta and inferior vena cava are normal in size. PELVIS: Pelvic Organs: This patient is status post hysterectomy. No adnexal masses are seen. Pelvic Nodes: Unremarkable. Miscellaneous: No inguinal hernias are seen. Bones: Unremarkable. IMPRESSION: No ajay CT findings of acute pancreatitis. Findings of chronic pancreatitis are seen, with an atrophic pancreas with numerous coarse calcifications. Prior liver transplant. Right lower quadrant kidney transplant, without complication seen. Incidental note is made of: Cholecystectomy Atrophic mi'kmaq kidneys Hysterectomy Dictated by: Mickey Vogel M.D. on 04/27/2021 at 8:52 Approved by: Mickey Vogel M.D. on 04/27/2021 at 8:58
[2021-04-27] MEDS: SODIUM CHLORIDE 0.9% 1,000 ML 1000 ML IV (09:35)
[2021-04-27] MEDS: ONDANSETRON 4 MG/2 ML INJ IV (09:36)
[2021-04-27] MEDS: MORPHINE 4 MG/ML INJ IV (09:36)
--- NOTE | 2021-04-27 09:38 | ED_ITS ---
HPI - Abdominal Pain General Chief Complaint: Abdominal Pain Stated Complaint: Upper abd pain, dizzy Time Seen by Provider: 04/27/21 09:19 Source: patient Mode of arrival: Ambulatory History of Present Illness HPI narrative: Patient here for recurrent upper abdominal pain. Started again yesterday. Has chronic pancreatitis. History liver and kidney transplant in 2013 at [facility]. Secondary to alcohol abuse. Since then has had intermittent and frequent chronic pancreatitis flare ups. This episode started yesterday. Has had nausea. Pain with eating. Patient does see GI at [facility]. Had MRCP recently. But no recent endoscopy of the stomach. Patient did have ERCP by GI specialist as well in the past 5 years. Patient being followed by Dr. Beltrán, urology for frequent UTIs. Recently being followed in the last month. Patient also obtained OBGYN Dr. Cruz, in [place]. Currently on Macrobid for recurrent UTI. Is scheduled for cystoscopy with Dr. Beltrán. 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 Related Data Home Medications Medication Instructions Recorded Confirmed fluticasone propionate 220 2 spray INH BID #0 09/20/12 04/17/21 mcg/actuation HFA aerosol inhaler (Flovent HFA) Previous Rx's Medication Instructions Recorded omeprazole magnesium 20 mg 20 mg PO QDAY #90 tab 05/22/18 tablet,delayed release (Prilosec OTC) albuterol sulfate 90 mcg/actuation 2 puff INHALATION BID PRN #18 gram 11/16/19 aerosol inhaler (Proventil HFA) benzonatate 100 mg capsule 100 mg PO TID PRN #90 cap 03/21/20 (Tessheldon Valenzuela) clotrimazole-betamethasone 1 1 applic TOPICAL BID #45 g 03/21/20 %-0.05 % topical cream mycophenolate sodium 180 mg 180 mg PO BID #180 tab 03/21/20 tablet,delayed release tacrolimus 1 mg capsule, 2 mg PO BID #120 cap 03/28/20 immediate-release (Prograf) fluticasone propionate 50 2 spray INTRANASAL BID #16 g 05/19/20 mcg/actuation nasal spray,suspension estradiol 10 mcg vaginal tablet 10 mcg VAGINAL 2XW #8 tab 12/01/20 (Vagifem) diazepam 5 mg tablet 5 mg PO ONCE PRN #2 tab 01/12/21 [id number] See Rx Instructions .ROUTE 02/23/21 12,000-38,000-60,000 unit .COMPLEX #540 cap capsule,delayed rel (Creon) pantoprazole 40 mg tablet,delayed 40 mg PO DAILY #14 tab 04/27/21 release (Protonix) sucralfate 1 gram tablet (Carafate) 1 g PO BID #20 tab 04/27/21 Allergies Allergy/AdvReac Type Severity Reaction Status Date / Time hydrocodone [From VICODIN] Allergy Mild rash Verified 04/17/21 13:22 promethazine [From PHENERGAN] Allergy Unknown Verified 04/17/21 13:22 Review of Systems Review of Systems Narrative: GENERAL: Denies chills, fatigue, malaise, fever, sweats. HEENT: Denies sinus pain, ear pain, sore throat RESPIRATORY: Denies dyspnea, cough CARDIOVASCULAR: Denies chest pain, palpitations GASTROINTESTINAL: Positive for nausea and abdominal pain : Positive dysuria, frequency, hematuria MUSCULOSKELETAL: denies muscle or bony pain SKIN: Denies rash, skin lesions NEUROLOGIC: Denies weakness, numbness ROS Unobtainable: All systems reviewed & are unremarkable except as noted in HPI and below Patient History Medical History Asthma (~2009) Chronic back pain (~2012) Chronic pancreatitis Chronic urinary tract infection Cirrhosis (~2013) GI bleeding (~2013) History of alcohol abuse History of liver transplant (02/2014) History of tobacco use Incomplete emptying of bladder Kidney failure (~2013) Kidney transplant recipient (02/2014) Recurrent urinary tract infection Vertigo (~2015) Surgical History Anesthesia Status post delivery (~1983) Status post delivery (~1986) Status post delivery (~1994) Status post hysterectomy (~1998) Transplant (~2013) Social History marital status: number of children: 3 Smoking Status: Former smoker Type(s) of exercise: walking frequency: 3-4 times per week Smoking Status: Former smoker alcohol intake frequency: other Substance Use Type: does not use Exam Narrative Exam Narrative: GENERAL: in no distress, not toxic not dyspneic HEAD: Normocephalic. EYES: Pupils equal round No scleral icterus. ENT: Mucous membranes moist. NECK: Trachea midline. CARDIOVASCULAR: Regular rate and rhythm without murmurs RESPIRATORY: Clear to auscultation. Breath sounds equal bilaterally. No wheezes, rales, or rhonchi. GASTROINTESTINAL: Abdomen soft, diffuse epigastric right upper and left upper quadrant tenderness. No peritoneal signs. Slightly distended. Bowel sounds present. No CVA tenderness EXTREMITIES: No gross deformities. BACK: No flank tenderness. NEURO: AOx4. SKIN: Warm and dry PSYCH: Not anxious, is cooperative Initial Vital Signs Initial Vital Signs: Vital Signs Temperature 97.9 F 04/27/21 08:34 Pulse Rate 73 04/27/21 08:34 Respiratory Rate 18 04/27/21 08:34 Blood Pressure 153/90 H 04/27/21 08:34 Pulse Oximetry 99 04/27/21 08:34 Course Course Course Narrative: No new issues during course of stay. Orders Ordered: Discontinued Medications Sodium Chloride (Normal Saline 0.9%) 1,000 mls @ 1,000 mls/hr IV BOLUS ONE Stop: 04/27/21 10:27 Last Infusion: 04/27/21 10:58 Dose: 0 mls/hr Documented by: Admin: 04/27/21 09:35 Dose: 1,000 mls/hr Documented by: [email or web address] Morphine Sulfate (Morphine 4 Mg/Ml Inj) 4 mg IV NOW ONE Stop: 04/27/21 09:29 Last Admin: 04/27/21 09:36 Dose: 4 mg Documented by: [email or web address].GOPIOOSE Ondansetron HCl (Ondansetron 4 Mg/2 Ml Inj) 4 mg IV NOW ONE Stop: 04/27/21 09:29 Last Admin: 04/27/21 09:36 Dose: 4 mg Documented by: [email or web address].[email or web address] Pantoprazole Sodium (Pantoprazole 40 Mg Vial) 40 mg IV NOW ONE Stop: 04/27/21 11:02 Last Admin: 04/27/21 11:10 Dose: 40 mg Documented by: [email or web address] Reevaluation(s) Reevaluation #1: Pain much better now. Patient feels much better after IV fluids and pain medication and nausea medication. Reviewed results with patient. She does have a new family doctor, Dr. Mccain. She will call for referral for new GI doctor for endoscopy of the stomach. She is on Pepcid but does agree for Protonix. At this time labs and imaging reassuring. She desires discharge home. Time: 11:01 Vital Signs Vital signs: Vital Signs - 8 hr 04/27/21 08:34 04/27/21 08:42 04/27/21 08:43 Temperature 97.9 F Pulse Rate 73 91 H 81 Respiratory Rate 18 Blood Pressure 153/90 H 153/90 H Pulse Oximetry 99 96 99 04/27/21 09:00 04/27/21 09:07 04/27/21 09:30 Temperature Pulse Rate 70 95 H 73 Respiratory Rate 18 19 28 H Blood Pressure 145/84 H 147/80 H 144/86 H Pulse Oximetry 98 100 99 04/27/21 09:59 04/27/21 10:00 04/27/21 10:01 Temperature Pulse Rate 72 68 68 Respiratory Rate 18 16 16 Blood Pressure 155/94 H 150/82 H Pulse Oximetry 98 100 99 04/27/21 10:30 04/27/21 10:56 Temperature Pulse Rate 68 64 Respiratory Rate 19 10 L Blood Pressure 148/90 H 152/95 H Pulse Oximetry 97 94 MDM - Abdominal Pain Differential Diagnosis Differential diagnosis: Likely abdominal pain, constipation, pancreatitis, small bowel obstruction and other (Gastritis) Lab Data Result diagrams: 04/27/21 09:00 04/27/21 09:00 Labs: Lab Results 04/27/21 04/27/21 Range/Units 09:00 09:00 WBC 5.6 (4.5-11.0) X10^3/uL RBC 4.07 (4.0-5.2) X10^6/uL Hgb 12.3 (12.0-16.0) g/dL Hct 36.8 (36-46) % MCV 90.5 (80-100) fL MCH 30.2 (26-34) PG MCHC 33.4 (30-36) % RDW 13.5 (11.6-14.8) % Plt Count 300 (150-400) X10^3/uL Neut % (Auto) 64.7 (50-75) % Lymph % (Auto) 26.4 (25-40) % Mccracken % (Auto) 5.9 (3-14) % Eos % (Auto) 2.2 (2-4) % Baso % (Auto) 0.8 (0-2) % Neut # (Auto) 3600 (6688-4024) /uL Lymph # (Auto) 1500 (1847-4700) /uL Mccracken # (Auto) 300 (0-900) /uL Eos # (Auto) 100 (0-450) /uL Baso # (Auto) 0 (0-100) /uL Sodium 139 (137-145) mmol/L Potassium 4.8 (3.4-5.1) mmol/L Chloride 105 (98-107) mmol/L Carbon Dioxide 26 (22-32) mmol/L BUN 24 H (7-17) mg/dL Creatinine 1.43 H (0.52-1.04) mg/dL Estimated GFR 37.4 L (>60) mL/min BUN/Creatinine Ratio 16.8 (6-22) Glucose 112 H (80-110) mg/dL Calcium 9.6 (8.4-10.2) mg/dL Total Bilirubin 1.3 (0.2-1.3) mg/dL AST 31 (14-36) IU/L ALT 26 (<35) IU/L Alkaline Phosphatase 80 (38-126) U/L Total Protein 8.8 H (6.3-8.2) g/dL Albumin 4.9 (3.5-5.0) g/dL Globulin 3.9 (1.7-4.1) g/dL Albumin/Globulin Ratio 1.3 (1.0-2.8) Lipase 16 L (23-300) U/L Point of care testing: Urine Dip Bedside Urine Glucose Negative Bedside Urine Bilirubin - Negative Bedside Urine Ketone - Negative Urine Specific [place] 1.020 Bedside Urine Occult Blood - Negative Bedside Urine pH 6.0 Bedside Urine Protein - Negative Bedside Urine Urobilinogen - Negative Bedside Urine Nitrite - Negative Bedside Urine Leukocytes - Negative Esterase Imaging Data CT scan - abdomen/pelvis: Radiologist's Impression: [address] [address] [address] Scan Report Signed Patient: Kesha Jo MR#: [id number] : 1960 Acct:[id number] Age/Sex: 60 / F Date of Service: 04/27/21 Loc: ED Accession Number: [id number] ?? Procedure: CT abdomen pelvis wo con Ordering Provider: Jian Cuellar MD PROCEDURE:? CT ABDOMEN PELVIS WO CON ? INDICATIONS:? Epigastric pain/pancreatitis ? TECHNIQUE:? Axial sections were acquired from the lung bases to the pubic symphysis.? Coronal and sagittal reformats were performed.? For radiation dose reduction, the following was used: ?automated exposure control, adjustment of mA and/or kV according to patient size.? ? COMPARISON:? [facility], CT, CT KIDNEY URETER BLADDER (KUB), 02/25/2020, 11:24.? [facility], MR, MR ABDOMEN PANCREAS PROTOCOL, 01/16/2021, 12:30. ? FINDINGS:? Image quality:? Excellent.? ? Lung bases:? Unremarkable.? ? Heart:? No significant findings. ? URINARY: Kidneys and ureters:? The viejas kidneys are atrophic.? No kidney masses are seen.? There is no hydronephrosis. ? There is a right lower quadrant kidney transplant that demonstrates normal size, without hydronephrosis.? No significant perinephric fat stranding is seen.? The appearance of this transplant kidney is not significantly different from the CT examination dated 02/25/2020. ? Bladder:? Normal wall thickness. No stones. ? ? ? ABDOMEN: Liver:? Numerous clips are seen adjacent to the liver, consistent with the known history of liver transplant. Gallbladder:? Removed.? ? Biliary ducts:? Unremarkable.? ? Pancreas:? The pancreas is abnormal, with numerous calcifications along its course.? The pancreas overall is atrophic.? No peripancreatic inflammatory changes are seen. Spleen:? Unremarkable.? ? Adrenal Glands:? Unremarkable.? ? ? Stomach and Bowel:? Stomach, small bowel loops, and colon are unremarkable.? Peritoneum:? No abnormal intraperitoneal fluid.? No free air.? ? Ventral Wall: A mild periumbilical hernia is seen, containing fat. ? Abdominal Nodes:? No enlarged retroperitoneal or mesenteric lymph nodes.? Vessels:? Aorta and inferior vena cava are normal in size.? ? PELVIS: Pelvic Organs: This patient is status post hysterectomy. No adnexal masses are seen.? Pelvic Nodes: Unremarkable. Miscellaneous: No inguinal hernias are seen. ? ? ? Bones:? Unremarkable. ? IMPRESSION:? ? No ajay CT findings of acute pancreatitis.? Findings of chronic pancreatitis are seen, with an atrophic pancreas with numerous coarse calcifications. ? Prior liver transplant. ? Right lower quadrant kidney transplant, without complication seen. ? ? ? Incidental note is made of: Cholecystectomy Atrophic viejas kidneys Hysterectomy ? ? ? Dictated by: Mickey Vogel M.D. on 04/27/2021 at 8:52 ? ? Approved by: Mickey Vogel M.D. on 04/27/2021 at 8:58 ? MDM Narrative Medical decision making narrative: Appropriate for discharge home pain control at time of discharge. Not toxic. Blood work and imaging reassuring. Likely chronic pancreatitis as patient states feels the same. Also could be gastritis. Needs outpatient appropriate endoscopy of the stomach. 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 Return precautions reviewed with her. Not toxic. She desires discharge home. Discharge Plan Departure Patient Disposition: Home Clinical Impression: Abdominal pain Instructions: DI for Abdominal Pain-Adult Activity Restrictions/Additional Instructions: No fried fatty greasy foods. No carbonated drinks. No driving today or operating machinery. Prescriptions have been provided to your [facility] in [place]. Be sure to call your family doctor for referral to gastroenterology for endoscopy of your stomach. Return if worse if any questions or concerns. Prescriptions: New pantoprazole [Protonix] 40 mg tablet,delayed release (DR/EC) 40 mg PO DAILY Qty: 14 0RF sucralfate [Carafate] 1 gram tablet 1 g PO BID Qty: 20 0RF No Action fluticasone propionate [Flovent HFA] 12 GM HFA aerosol inhaler 2 spray INH BID Qty: 0 0RF Prilosec OTC 20 mg tablet,delayed release (DR/EC) 20 mg PO QDAY Qty: 90 3RF albuterol sulfate [Proventil HFA] 90 mcg/actuation HFA aerosol inhaler 2 puff inhalation BID PRN (Reason: shortness of breath or wheezing) Qty: 18 2RF tacrolimus [Prograf] 1 mg capsule 2 mg PO BID Qty: 120 0RF Rx Instructions: administer on an empty stomach; take two tabs by mouth twice daily. fluticasone propionate 50 mcg/actuation spray,suspension 2 spray intranasal BID Qty: 16 0RF Rx Instructions: administer into each nostril estradiol [Vagifem] 10 mcg tablet 10 mcg Vaginal 2XW Qty: 8 11RF Rx Instructions: Insert 1 tab vaginally twice a week diazepam 5 mg tablet 5 mg PO ONCE PRN (Reason: MRI Anxiety) Qty: 2 0RF Rx Instructions: May repeat once if necessary prior to procedure Creon 12,000-38,000 -60,000 unit capsule,delayed release(DR/EC) See Rx Instructions .ROUTE .COMPLEX Qty: 540 3RF Dose Instruction: take 3 capsules by mouth three times a day Rx Instructions: take 3 capsules by mouth three times a day mycophenolate sodium 180 mg tablet,delayed release (DR/EC) 180 mg PO BID Qty: 180 3RF Rx Instructions: Take 1 tab by mouth twice a day clotrimazole-betamethasone 1-0.05 % cream 1 applic topical BID Qty: 45 3RF benzonatate [Tessalon Perles] 100 mg capsule 100 mg PO TID PRN (Reason: cough) Qty: 90 3RF Referrals: Mendoza Lewis MD [Primary Care Provider] -
[2021-04-27] MEDS: PANTOPRAZOLE 40 MG VIAL IV (11:10)
== END 2021-04-27 11:25 | disposition home or self-care (01) ==
PROVIDERS: Emergency Provider Emergency Medicine; PCP Internal Medicine; Referring Provider Registered Nurse
DX: R10.13 Epigastric pain (principal); R10.11 Right upper quadrant pain; R10.12 Left upper quadrant pain; Z94.0 Kidney transplant status; Z94.4 Liver transplant status; Z87.891 Personal history of nicotine dependence; Z88.8 Allergy status to other drugs, medicaments and biological substances
CPT/HCPCS: 36415; 74176; 80053; 81003; 83690; 85025; 96361; 96374; 96375; 99284; C9113; J2270; J2405

== ENCOUNTER → 2021-06-22 12:04 | Outpatient (CLI) | payer OTHER, MEDICAID, SELFPAY ==
--- NOTE | 2021-06-22 | DI.US.S_ITS ---
PROCEDURE: US THYROID INDICATIONS: AUTOIMMUNE THYROIDITIS TECHNIQUE: Real-time scanning was performed of the thyroid gland, with image documentation. COMPARISON: None. FINDINGS: Right: Thyroid lobe measures 5.2 x 1.8 x 2.1 cm, and is diffusely heterogeneous in echotexture. No discrete nodules identified. There is increased vascularity on color Doppler interrogation. Left: Thyroid lobe measures 4.9 x 1.5 x 1.5 cm, and is diffusely heterogeneous in echotexture. No discrete nodules identified. There is increased vascularity on color Doppler interrogation. Isthmus: 0.3 cm thick. IMPRESSION: 1. Bilateral heterogeneous appearance of the thyroid with increased vascularity consistent with history of thyroiditis. Dictated by: Eb Antonio M.D. on 06/22/2021 at 17:05 Approved by: Eb Antonio M.D. on 06/22/2021 at 17:06
== END ==
PROVIDERS: PCP Nurse Practitioner Family; Referring Provider Registered Nurse; Visit Provider Registered Nurse
DX: E06.3 Autoimmune thyroiditis (principal)
CPT/HCPCS: 76536

== ENCOUNTER → 2022-01-19 08:25 | Outpatient (CLI) | payer OTHER, MEDICAID, SELFPAY ==
[2022-01-19 09:56] LABS: Hemoglobin A1C% w Est Avg Glu 5.8 % (4.0-6.0)
[2022-01-19 09:58] LABS: Add Manual Diff / Slide Review NO; Basophils Absolute Auto 0 /uL (0-100); Basophils Percent Auto 0.9 % (0-2); Eosinophils Absolute Auto 100 /uL (0-450); Eosinophils Percent Auto 2.5 % (2-4); Hematocrit 38.3 % (36-46); Hemoglobin 12.7 g/dL (12.0-16.0); Lymphocytes Absolute Auto 1500 /uL (1100-4500); Lymphocytes Percent Auto 32.9 % (25-40); Mean Corpuscular HGB Conc 33.2 % (30-36); Mean Corpuscular Hemoglobin 30.1 PG (26-34); Mean Corpuscular Volume 90.6 fL (80-100); Monocytes Absolute Auto 300 /uL (0-900); Monocytes Percent Auto 6.5 % (3-14); Neutrophils Absolute Auto 2600 /uL (1500-7000); Neutrophils Percent Auto 57.2 % (50-75); Platelet Count 283 X10^3/uL (150-400); Red Blood Cell Count 4.23 X10^6/uL (4.0-5.2); Red Cell Distribution Width 13.5 % (11.6-14.8); White Blood Cell Count 4.5 X10^3/uL (4.5-11.0)
[2022-01-19 10:13] LABS: Alanine Aminotransferase 51 IU/L (<35); Albumin 4.5 g/dL (3.5-5.0); Albumin Globulin Ratio 1.3 (1.0-2.8); Alkaline Phosphatase 75 U/L (38-126); Aspartate Aminotransferase 44 IU/L (14-36); BUN Creatinine Ratio 17.3 (6-22); Bilirubin Total 1.2 mg/dL (0.2-1.3); Blood Urea Nitrogen 24 mg/dL (7-17); Calcium 9.7 mg/dL (8.4-10.2); Carbon Dioxide 29 mmol/L (22-32); Chloride 102 mmol/L (98-107); Cholesterol 196 mg/dL (140-199); Estimated Glomerular Filt Rate 43 mL/min (>60); Globulin 3.5 g/dL (1.7-4.1); Glucose 107 mg/dL (80-110); HDL Cholesterol 70 mg/dL (40-60); HEMOLYSIS < 15 (0-50); LDL Cholesterol Calculated 109 mg/dL (<100); Lipase 15 U/L (23-300); Potassium 5.2 mmol/L (3.4-5.1); Sodium 142 mmol/L (137-145); Triglycerides 86 mg/dL (35-150)
[2022-01-19 10:25] LABS: Vitamin D 25 Hydroxy (D3) 28.8 ng/mL (30.0-100.0)
[2022-01-19 10:38] LABS: TSH w/ Reflex to FT4 2.17 uIU/mL (0.47-4.68)
== END ==
PROVIDERS: PCP Family Medicine; Referring Provider Family Medicine; Visit Provider Family Medicine
DX: K86.1 Other chronic pancreatitis (principal); R73.03 Prediabetes; Z94.0 Kidney transplant status; Z94.4 Liver transplant status; E55.9 Vitamin D deficiency, unspecified
CPT/HCPCS: 36415; 80053; 80061; 82306; 83036; 83690; 84443; 85025

== ENCOUNTER → 2022-02-07 07:36 | Outpatient (CLI) | payer OTHER, MEDICAID, SELFPAY ==
--- NOTE | 2022-02-07 07:37 | DI.MG.S_ITS ---
BILATERAL DIGITAL SCREENING MAMMOGRAM 3D/2D WITH CAD: 02/07/2022 CLINICAL: Routine screening. Baseline exam by default. No prior exams were available for comparison. Both breasts are heterogeneously dense, which may obscure small masses (category c / 51-75% glandular tissue). Current study was also evaluated with a Computer Aided Detection (CAD) system. No significant masses, calcifications, or other findings are seen in either breast. IMPRESSION: NEGATIVE There is no mammographic evidence of malignancy. A 1 year screening mammogram is recommended. Based on the Tyrer Cuzick model (a risk assessment model) the patient's lifetime risk is 8.7% and her 10 year risk is 3.6%. According to the ACR, ACS, and NCCN guidelines, an annual breast MRI exam along with mammogram is recommended if the patient's lifetime risk is 20% or greater. This exam was interpreted at Station ID: [id number]. NOTE: For mammograms, a report in lay terms will be sent to the patient. Approximately 15% of breast malignancies will not be visualized mammographically. In the management of a palpable breast mass, a negative mammogram must not discourage biopsy of a clinically suspicious lesion. Electronically Signed By: Ramirez sarabia/cherrie:02/07/2022 15:53:13 letter sent: Normal Exam ACR BI-RADS Category 1: Negative [id number]
== END ==
PROVIDERS: PCP Family Medicine; Referring Provider Family Medicine; Visit Provider Family Medicine
DX: Z12.31 Encounter for screening mammogram for malignant neoplasm of breast (principal)
CPT/HCPCS: 77063; 77067

== ENCOUNTER → 2022-05-16 10:38 | Outpatient (CLI) | payer OTHER, MEDICAID, SELFPAY ==
[2022-05-16 11:39] LABS: Blood Urea Nitrogen 30 mg/dL (7-17); Calcium 9.1 mg/dL (8.4-10.2); Carbon Dioxide 28 mmol/L (22-32); Chloride 102 mmol/L (98-107); Estimated Glomerular Filt Rate 42 mL/min (>60); Glucose 96 mg/dL (80-110); HEMOLYSIS < 15 (0-50); Potassium 4.8 mmol/L (3.4-5.1); Sodium 140 mmol/L (137-145)
[2022-05-16 12:58] LABS: Appearance Urine UA CLEAR; Bilirubin Urine UA NEGATIVE (NEGATIVE); Color Urine UA YELLOW; Glucose Urine UA 3+ g/dL (Negative); Ketones Urine UA NEGATIVE (NEGATIVE); Leukocyte Esterase Urine UA NEGATIVE (NEGATIVE); Nitrite Urine UA NEGATIVE (Negative); Occult Blood Urine UA NEGATIVE (Negative); Protein Urine UA NEGATIVE (Negative); Specific Gravity Urine UA 1.015 (1.000-1.035); Urobilinogen Urine UA 0.2 E.U./dL (0.2)
[2022-05-16 13:18] LABS: Bacteria Urine None Seen; Culture Indicated Urine Cult Not Indicated; RBC Urine None Seen (0-5/HPF); Urine Comments Microscopic Normal; WBC Urine None Seen (0-5/HPF)
== END ==
PROVIDERS: PCP Family Medicine; Referring Provider Nurse Practitioner Family; Visit Provider Nurse Practitioner Family
DX: N39.0 Urinary tract infection, site not specified (principal); Z94.0 Kidney transplant status
CPT/HCPCS: 36415; 80048; 81001

== ENCOUNTER → 2023-03-22 11:49 | Outpatient (CLI) | payer OTHER, SELFPAY ==
--- NOTE | 2023-03-22 14:00 | DI.MRI.S_ITS ---
PROCEDURE: MR AB PANCREATIC/MRCP PROTOCOL INDICATIONS: CHRONIC PANCREATITIS / EPIGASTRIC PAIN TECHNIQUE: Coronal HASTE through the abdomen, axial 2-D FLASH in- and [id number], and breath-hold T2 FSE with fat saturation through the biliary system and pancreas. Oblique coronal and axial thin-slice HASTE, radial thick-slab HASTE centered on the extrahepatic bile ducts. Intravenous secretin: Not requested. COMPARISON: None. FINDINGS: Image quality: Diagnostic. Gallbladder: Absent. Biliary ducts: Intrahepatic biliary tree dilation in segment 5 and 3. Mild restricted diffusion within this region. Small degree of biliary irregularity within the sites. Pancreas: Moderate pancreatic parenchymal atrophy, with ductal ectasia. OTHER: Lung bases: Unremarkable. Liver: No solid mass. Non cirrhotic liver morphology. Spleen: Size is within normal limits. Adrenal Glands: No adrenal nodules. Kidneys and Ureters: Atrophic [place] kidneys. Partially visualized right lower quadrant kidney transplant period the transplant demonstrates no hydronephrosis or solid mass. The kidneys have benign cysts. Stomach and Bowel: Normal colonic caliber, without significant wall thickening. Peritoneum: No abnormal intraperitoneal fluid. No free air. Ventral Wall: No hernia. Abdominal Nodes: No retroperitoneal or mesenteric adenopathy by size criteria. Vessels: Aorta and inferior vena cava are normal in size. Bones: No aggressive osseous abnormality. IMPRESSION: Intrahepatic biliary dilation of segment 5 and segment 3, without obstructing mass identified. Biliary ductal irregularity in the sites. Findings raise concern for PSC. Atrophic [place] kidneys and a right lower quadrant kidney transplant. No hydronephrosis or mass. Moderate pancreatic ductal atrophy, with pancreatic tail ectasia. Findings probably are the result chronic pancreatitis. Dictated by: Dedrick Abdul M.D. on 03/22/2023 at 15:30 Approved by: Dedrick Abdul M.D. on 03/22/2023 at 16:15
== END ==
LOC: MRI 11:50
PROVIDERS: PCP Family Medicine; Referring Provider Internal Medicine Gastroenterology; Visit Provider Internal Medicine Gastroenterology
DX: K83.8 Other specified diseases of biliary tract (principal); K86.89 Other specified diseases of pancreas; R10.13 Epigastric pain; K86.1 Other chronic pancreatitis; N26.1 Atrophy of kidney (terminal); Z94.0 Kidney transplant status
CPT/HCPCS: 74183

== ENCOUNTER → 2023-10-23 16:59 | Outpatient (CLI) | payer OTHER, SELFPAY ==
--- NOTE | 2023-10-23 17:39 | DI.RAD.S_ITS ---
PROCEDURE: XR FOOT LT MIN 3V INDICATIONS: foot lump plantar surface, tender TECHNIQUE: 3 views of the foot were acquired. COMPARISON: None. FINDINGS: Bones: No fractures or dislocations. No suspicious bony lesions. Moderate degenerative changes at the 1st MTP joint. Soft tissues: No tibiotalar joint effusion. Achilles tendon appears normal. IMPRESSION: No acute bony abnormality. Moderate degenerative changes at the 1st MTP joint. Dictated by: Ramirez Bobby M.D. on 10/24/2023 at 22:19 Approved by: Ramirez Bobby M.D. on 10/24/2023 at 22:20
== END ==
LOC: LAB 16:59 → RAD 17:39
PROVIDERS: PCP Family Medicine; Referring Provider Family Medicine; Visit Provider Family Medicine
DX: M21.969 Unspecified acquired deformity of unspecified lower leg (principal)
CPT/HCPCS: 73630

== ENCOUNTER → 2023-12-12 16:03 | Outpatient (ROUT) | payer BC, SELFPAY ==
[2023-12-12 16:13] LABS: Appearance Urine UA CLEAR; Bilirubin Urine UA NEGATIVE (NEGATIVE); Color Urine UA YELLOW; Glucose Urine UA 1+ g/dL (Negative); Ketones Urine UA NEGATIVE (NEGATIVE); Leukocyte Esterase Urine UA NEGATIVE (NEGATIVE); Nitrite Urine UA NEGATIVE (Negative); Occult Blood Urine UA NEGATIVE (Negative); Protein Urine UA NEGATIVE (Negative); Specific Gravity Urine UA <=1.005 (1.000-1.035); Urobilinogen Urine UA 0.2 E.U./dL (0.2)
[2023-12-12 16:28] LABS: pH Urine UA 5.5 (4.5-8.0)
[2023-12-12 16:31] LABS: Bacteria Urine None Seen; Culture Indicated Urine Cult Not Indicated; RBC Urine None Seen (0-5/HPF); Squamous Epithelial Cell Urine None Seen (0-5/HPF); Urine Volume 10mL (spun); WBC Urine 0-1/HPF (0-5/HPF)
== END ==
PROVIDERS: PCP Family Medicine; Visit Provider Family Medicine
DX: N18.32 Chronic kidney disease, stage 3b (principal)
CPT/HCPCS: 81001

== ENCOUNTER → 2023-12-27 10:24 | Outpatient (CLI) | payer BC, SELFPAY ==
--- NOTE | 2023-12-27 10:28 | EKG_ITS ---
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
== END ==
LOC: RESP 10:27
PROVIDERS: PCP Family Medicine; Referring Provider Family Medicine; Visit Provider Family Medicine
DX: Z01.810 Encounter for preprocedural cardiovascular examination (principal)
CPT/HCPCS: 93005

== ENCOUNTER → 2024-03-06 10:56 | Outpatient (CLI) | payer BC, SELFPAY ==
[2024-03-06 11:32] LABS: Hemoglobin A1C% w Est Avg Glu 5.6 % (4.0-6.0)
[2024-03-06 11:46] LABS: Alanine Aminotransferase 29 IU/L (<35); Albumin 4.4 g/dL (3.5-5.0); Albumin Globulin Ratio 1.3 (1.0-2.8); Alkaline Phosphatase 76 U/L (38-126); Aspartate Aminotransferase 36 IU/L (14-36); BUN Creatinine Ratio 16.4 (6-22); Bilirubin Total 1.2 mg/dL (0.2-1.3); Blood Urea Nitrogen 24 mg/dL (7-17); Calcium 9.8 mg/dL (8.4-10.2); Carbon Dioxide 27 mmol/L (22-32); Chloride 104 mmol/L (98-107); Estimated Glomerular Filt Rate 40 mL/min (>60); Globulin 3.3 g/dL (1.7-4.1); Glucose 98 mg/dL (80-110); HEMOLYSIS < 15 (0-50); Potassium 4.8 mmol/L (3.4-5.1); Sodium 138 mmol/L (137-145); Total Protein 7.7 g/dL (6.3-8.2)
[2024-03-06 12:04] LABS: Vitamin D 25 Hydroxy (D3) 48.1 ng/mL (30.0-100.0)
[2024-03-06 12:28] LABS: Creatinine Urine Random 19.98 mg/dL
[2024-03-06 12:33] LABS: Microalbumin Urine Random 1.2 mg/dL (0-1.6)
== END ==
LOC: LAB 10:59
PROVIDERS: PCP Family Medicine; Referring Provider Family Medicine; Visit Provider Family Medicine
DX: E11.42 Type 2 diabetes mellitus with diabetic polyneuropathy (principal); N18.32 Chronic kidney disease, stage 3b; E55.9 Vitamin D deficiency, unspecified
CPT/HCPCS: 36415; 80053; 82043; 82306; 82570; 83036

== ENCOUNTER 2024-04-29 09:11 | Emergency (ER) | payer BC, SELFPAY ==
[2024-04-29] VITALS (12 sets, daily range): BP systolic 137–191; BP diastolic 80–98; PULSE 71–79; RESP 17–25; TEMP 36.4; O2SAT 95–99; BMI 27.3
--- NOTE | 2024-04-29 10:11 | EKG_ITS ---
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
[2024-04-29 10:39] LABS: Add Manual Diff / Slide Review NO; Basophils Absolute Auto 100 /uL (0-100); Eosinophils Absolute Auto 100 /uL (0-450); Hematocrit 40.5 % (36-46); Hemoglobin 13.6 g/dL (12.0-16.0); Lymphocytes Absolute Auto 1900 /uL (1100-4500); Lymphocytes Percent Auto 33.9 % (25-40); Mean Corpuscular HGB Conc 33.5 % (30-36); Mean Corpuscular Hemoglobin 30.5 PG (26-34); Mean Corpuscular Volume 91.1 fL (80-100); Monocytes Absolute Auto 400 /uL (0-900); Monocytes Percent Auto 7.6 % (3-14); Neutrophils Absolute Auto 3200 /uL (1500-7000); Neutrophils Percent Auto 55.5 % (50-75); Platelet Count 364 X10^3/uL (150-400); Red Blood Cell Count 4.45 X10^6/uL (4.0-5.2); Red Cell Distribution Width 14.2 % (11.6-14.8); White Blood Cell Count 5.7 X10^3/uL (4.5-11.0)
[2024-04-29 10:46] LABS: Alanine Aminotransferase 32 IU/L (<35); Albumin 4.6 g/dL (3.5-5.0); Albumin Globulin Ratio 1.2 (1.0-2.8); Alkaline Phosphatase 75 U/L (38-126); Aspartate Aminotransferase 41 IU/L (14-36); BUN Creatinine Ratio 15.3 (6-22); Bilirubin Total 1.2 mg/dL (0.2-1.3); Blood Urea Nitrogen 20 mg/dL (7-17); Calcium 9.6 mg/dL (8.4-10.2); Carbon Dioxide 27 mmol/L (22-32); Chloride 103 mmol/L (98-107); Estimated Glomerular Filt Rate 46 mL/min (>60); Globulin 3.7 g/dL (1.7-4.1); Glucose 100 mg/dL (80-110); HEMOLYSIS 24 (0-50); Lipase 17 U/L (23-300); Potassium 4.7 mmol/L (3.4-5.1); Sodium 138 mmol/L (137-145); Total Protein 8.3 g/dL (6.3-8.2)
--- NOTE | 2024-04-29 12:25 | DI.CT.S_ITS ---
PROCEDURE: CT ABDOMEN PELVIS W CON INDICATIONS: pain with hx liver and kidney transplant TECHNIQUE: After the administration of intravenous contrast, axial sections acquired from the lung bases to the pubic symphysis. Coronal and sagittal reformats were performed. For radiation dose reduction, the following was used: automated exposure control, adjustment of mA and/or kV according to patient size. COMPARISON: [facility], CT, ABDOMEN/PELVIS WITH CONTRAST, 09/21/2016, 9:23. FINDINGS: Image quality: Diagnostic. Lower Chest: No significant findings. ABDOMEN: Liver: Again noted are postsurgical changes related to prior liver transplant. No solid mass. Gallbladder: Gallbladder is surgically absent. Biliary ducts: Mild intrahepatic biliary ductal dilatation is seen. Pancreas: Calcifications are again seen scattered throughout pancreatic parenchyma consistent with sequelae from prior episodes of pancreatitis. A trophic appearing pancreas without significant peripancreatic inflammatory changes. Spleen: Size is within normal limits. Adrenal Glands: No adrenal nodules. Kidneys and Ureters: Transplant kidney is noted in right lower quadrant. No hydronephrosis or obstructing renal stones. No solid appearing renal lesion. Atrophic bilateral [place] kidneys are also noted. Stomach and Bowel: There is no bowel obstruction. No abnormal bowel wall thickening or mesenteric fat stranding. Fecal stasis in the colon is seen. Appendix is not definitively identified. No focal inflammatory changes are seen in right lower quadrant. Mild sigmoid diverticulosis without CT evidence of acute diverticulitis. No abscess collection. Peritoneum: No abnormal intraperitoneal fluid. No free air. Ventral Wall: No significant ventral hernia. Abdominal Nodes: No retroperitoneal or mesenteric adenopathy by size criteria. Vessels: Aorta and inferior vena cava are normal in size. PELVIS: Pelvic Organs: Unremarkable. Bladder: No bladder wall thickening, accounting for underdistention. Pelvic Nodes: No enlarged lymph nodes. Miscellaneous: No inguinal hernias are seen. Bones: No aggressive osseous abnormality. IMPRESSION: 1. Sequelae of chronic pancreatitis. Atrophic appearing pancreas without discrete pancreatic mass or CT evidence of acute pancreatitis. No peripancreatic fluid collection. 2. Suggestion of prior liver transplant with postsurgical changes. Prior cholecystectomy. Mild intrahepatic biliary ductal dilatation. No gross common bile duct dilatation. No discrete solid appearing hepatic lesion. 3. Transplant kidney seen in right lower quadrant. No obstructing stones or hydronephrosis. Atrophic bilateral [place] kidneys. 4. No bowel obstruction or abnormal bowel wall thickening. Mild constipation. No free fluid or free air. Dictated by: Orlando Bales M.D. on 04/29/2024 at 12:51 Approved by: Orlando Bales M.D. on 04/29/2024 at 13:02
--- NOTE | 2024-04-29 12:29 | ED_ITS ---
HPI - Abdominal Pain General Chief Complaint: Abdominal Pain Stated Complaint: Stomach Bloating, dizzy sent from PCP Time Seen by Provider: 04/29/24 12:04 Source: patient Mode of arrival: Family Vehicle History of Present Illness HPI narrative: Patient is a 63-year-old female history of liver and kidney transplant, diabetes, recent shingles, chronic kidney disease presenting today with abdominal pain. She reports that she just got over a case of shingles she gets ?internal shingles she was put on medication and says that it got better. Now she is starting to have some upper abdominal burning and bloating. No significant nausea or vomiting. No fever. She does not get any kind of rash. She has not having any change in bowel or bladder habits. Related Data Home Medications Medication Instructions Recorded Confirmed tacrolimus 1 mg capsule, 2 mg PO BID 01/19/22 04/10/24 immediate-release (Prograf) Previous Rx's Medication Instructions Recorded cholecalciferol (vitamin D3) 1,250 1,250 mcg PO QWEEK #8 caps 09/11/23 mcg (50,000 unit) capsule mycophenolate sodium 180 mg 180 mg PO BID #180 tabs 09/18/23 tablet,delayed release empagliflozin 10 mg tablet 10 mg PO DAILY Push out sugars #90 09/23/23 (Jardiance) tabs [id number] See Rx Instructions .Route 12/10/23 36,000-114,000-180,000 unit .COMPLEX #90 caps capsule,delay rel (Creon) methenamine hippurate 1 gram tablet 1 g PO BID #60 tabs 01/28/24 valacyclovir 1 gram tablet 1,000 mg PO Q12H #14 tabs 03/03/24 oxycodone 5 mg tablet 5 mg PO Q6H PRN pain #20 tabs 03/05/24 prednisone 10 mg tablets in a dose See Rx Instructions PO .COMPLEX 03/09/24 pack #15 ea gabapentin 100 mg capsule See Rx Instructions PO BEDTIME #90 04/10/24 caps metformin 500 mg tablet 500 mg PO DAILY #90 tabs 04/10/24 pantoprazole 40 mg tablet,delayed 40 mg PO DAILY PRN reflux #30 tabs 04/10/24 release prednisone 20 mg tablet 40 mg (2 x 20 mg) PO DAILY #10 tabs 04/29/24 Allergies Allergy/AdvReac Type Severity Reaction Status Date / Time hydrocodone [From VICODIN] Allergy Mild rash Verified 04/29/24 10:19 promethazine [From PHENERGAN] Allergy Unknown Verified 04/29/24 10:19 sulfamethoxazole AdvReac Intermediate advised Verified 04/29/24 10:19 [From Bactrim] against due to potential risk to kidney trimethoprim [From Bactrim] AdvReac Intermediate advised Verified 04/29/24 10:19 against due to potential risk to kidney Patient History Medical History (Updated 04/29/24 @ 13:23 by Laquita Fan DO) Recurrent UTI UTI symptoms Weight gain finding Constipation Foot deformity Type 2 diabetes mellitus with peripheral neuropathy Peripheral neuropathy Chronic kidney disease (CKD) stage G3b/A1, moderately decreased glomerular filtration rate (GFR) between 30-44 mL/min/1.73 square meter and albuminuria creatinine ratio less than 30 mg/g Chronic headaches Vitamin D deficiency Incomplete emptying of bladder History of alcohol abuse History of tobacco use Chronic pancreatitis Recurrent urinary tract infection Chronic urinary tract infection Asthma (~2009) Chronic back pain (~2012) Vertigo (~2015) Kidney failure (~2013) GI bleeding (~2013) Cirrhosis (~2013) Kidney transplant recipient (02/2014) History of liver transplant (02/2014) Surgical History (Updated 10/23/23 @ 16:42 by Jv Lopez DO) History of biliary duct stent placement Anesthesia Transplant (~2013) Status post hysterectomy (~1998) Status post delivery (~1994) Status post delivery (~1986) Status post delivery (~1983) Family History (Updated 12/01/21 @ 10:25 by Jv Lopez DO) Mother No problems noted. Father Alzheimer's dementia Social History marital status: number of children: 3 Smoking Status: Former smoker Type(s) of exercise: walking frequency: 3-4 times per week Smoking Status: Former smoker alcohol intake frequency: other Exam Initial Vital Signs Initial Vital Signs: Vital Signs Temperature 97.5 F L 04/29/24 10:00 Pulse Rate 73 04/29/24 10:00 Respiratory Rate 17 04/29/24 10:00 Blood Pressure 191/98 H 04/29/24 10:00 Pulse Oximetry 99 04/29/24 10:00 Oxygen Delivery Method Room Air 04/29/24 10:00 GENERAL: Alert very well-appearing 63-year-old female and in no acute distress. HEENT: Head atraumatic,EOMI, pupils reactive, face symmetric, moist mucous membranes CARDIOVASCULAR: Regular rate and rhythm without murmurs, rubs or gallops. RESPIRATORY: Breath sounds equal bilaterally, no wheezes rales or rhonchi. ABDOMEN: Soft, nontender. Normoactive bowel sounds all 4 quadrants. No guarding or rebound. EXTREMITIES: Normal range of motion, no clubbing or edema. Neurovascularly intact NEUROLOGICAL: Alert and oriented x4.Normal gait and speech. Cranial nerves II through XII grossly intact. SKIN: Warm, dry, no laceration, no petechiae, no rashes or lesions. Course Orders Ordered: ED Orders 04/29/24 10:10 EKG-12 Lead Stat 04/29/24 10:20 Complete Blood Count AUTO DIFF Stat Comprehensive Metabolic Panel Stat Lipase Stat 04/29/24 12:25 CT abdomen pelvis w con Stat Discontinued Medications Ondansetron HCl (Ondansetron 4 Mg/2 Ml Inj) 4 mg IV NOW PRN PRN Reason: Nausea And Vomiting Ondansetron HCl (Ondansetron 4 Mg Odt) 4 mg PO NOW PRN PRN Reason: Nausea And Vomiting Vital Signs Vital signs: Vital Signs - 8 hr 04/29/24 10:30 04/29/24 10:30 04/29/24 11:00 Pulse Rate 73 71 Respiratory Rate 22 22 Blood Pressure 148/87 H Pulse Oximetry 95 95 04/29/24 11:00 04/29/24 11:30 04/29/24 11:30 Pulse Rate 71 Respiratory Rate 18 Blood Pressure 153/90 H 144/90 H Pulse Oximetry 97 04/29/24 12:00 04/29/24 12:00 04/29/24 12:30 Pulse Rate 71 74 Respiratory Rate 19 20 Blood Pressure 137/80 Pulse Oximetry 95 97 04/29/24 12:30 04/29/24 12:43 04/29/24 12:43 Pulse Rate 75 Respiratory Rate 20 Blood Pressure 153/83 H 152/88 H Pulse Oximetry 96 04/29/24 13:00 04/29/24 13:00 04/29/24 13:30 Pulse Rate 74 78 Respiratory Rate 21 25 H Blood Pressure 146/92 H Pulse Oximetry 98 97 04/29/24 13:30 04/29/24 14:00 04/29/24 14:00 Pulse Rate 79 Respiratory Rate 20 Blood Pressure 165/94 H 157/92 H Pulse Oximetry 96 MDM - Abdominal Pain Lab Data 04/29/24 10:20 04/29/24 10:20 Labs: Lab Results 04/29/24 Range/Units 10:20 WBC 5.7 (4.5-11.0) X10^3/uL RBC 4.45 (4.0-5.2) X10^6/uL Hgb 13.6 (12.0-16.0) g/dL Hct 40.5 (36-46) % MCV 91.1 (80-100) fL MCH 30.5 (26-34) PG MCHC 33.5 (30-36) % RDW 14.2 (11.6-14.8) % Plt Count 364 (150-400) X10^3/uL Neut % (Auto) 55.5 (50-75) % Lymph % (Auto) 33.9 (25-40) % [place] % (Auto) 7.6 (3-14) % Eos % (Auto) 2.0 (2-4) % Baso % (Auto) 1.0 (0-2) % Neut # (Auto) 3200 (2965-0122) /uL Lymph # (Auto) 1900 (4110-6534) /uL [place] # (Auto) 400 (0-900) /uL Eos # (Auto) 100 (0-450) /uL Baso # (Auto) 100 (0-100) /uL Sodium 138 (137-145) mmol/L Potassium 4.7 (3.4-5.1) mmol/L Chloride 103 (98-107) mmol/L Carbon Dioxide 27 (22-32) mmol/L BUN 20 H (7-17) mg/dL Creatinine 1.31 H (0.52-1.04) mg/dL Estimated GFR 46 L (>60) mL/min BUN/Creatinine Ratio 15.3 (6-22) Glucose 100 (80-110) mg/dL Calcium 9.6 (8.4-10.2) mg/dL Total Bilirubin 1.2 (0.2-1.3) mg/dL AST 41 H (14-36) IU/L ALT 32 (<35) IU/L Alkaline Phosphatase 75 (38-126) U/L Total Protein 8.3 H (6.3-8.2) g/dL Albumin 4.6 (3.5-5.0) g/dL Globulin 3.7 (1.7-4.1) g/dL Albumin/Globulin Ratio 1.2 (1.0-2.8) Lipase 17 L (23-300) U/L Point of care testing: Urine Dip Bedside Urine Glucose 1000 mg/dl Bedside Urine Bilirubin - Negative Bedside Urine Ketone - Negative Urine Specific [place] 1.015 Bedside Urine Occult Blood - Negative Bedside Urine pH 6.0 Bedside Urine Protein - Negative Bedside Urine Urobilinogen - Negative Bedside Urine Nitrite - Negative Bedside Urine Leukocytes - Negative Esterase Imaging Data CT scan - abdomen/pelvis: Radiologist's Impression: PROCEDURE: CT ABDOMEN PELVIS W CON INDICATIONS: pain with hx liver and kidney transplant TECHNIQUE: After the administration of intravenous contrast, axial sections acquired from the lung bases to the pubic symphysis. Coronal and sagittal reformats were performed. For radiation dose reduction, the following was used: automated exposure control, adjustment of mA and/or kV according to patient size. COMPARISON: [facility], CT, ABDOMEN/PELVIS WITH CONTRAST, 09/21/2016, 9:23. FINDINGS: Image quality: Diagnostic. Lower Chest: No significant findings. ABDOMEN: Liver: Again noted are postsurgical changes related to prior liver transplant. No solid mass. Gallbladder: Gallbladder is surgically absent. Biliary ducts: Mild intrahepatic biliary ductal dilatation is seen. Pancreas: Calcifications are again seen scattered throughout pancreatic parenchyma consistent with sequelae from prior episodes of pancreatitis. A trophic appearing pancreas without significant peripancreatic inflammatory changes. Spleen: Size is within normal limits. Adrenal Glands: No adrenal nodules. Kidneys and Ureters: Transplant kidney is noted in right lower quadrant. No hydronephrosis or obstructing renal stones. No solid appearing renal lesion. Atrophic bilateral [place] kidneys are also noted. Stomach and Bowel: There is no bowel obstruction. No abnormal bowel wall thickening or mesenteric fat stranding. Fecal stasis in the colon is seen. Appendix is not definitively identified. No focal inflammatory changes are seen in right lower quadrant. Mild sigmoid diverticulosis without CT evidence of acute diverticulitis. No abscess collection. Peritoneum: No abnormal intraperitoneal fluid. No free air. Ventral Wall: No significant ventral hernia. Abdominal Nodes: No retroperitoneal or mesenteric adenopathy by size criteria. Vessels: Aorta and inferior vena cava are normal in size. PELVIS: Pelvic Organs: Unremarkable. Bladder: No bladder wall thickening, accounting for underdistention. Pelvic Nodes: No enlarged lymph nodes. Miscellaneous: No inguinal hernias are seen. Bones: No aggressive osseous abnormality. IMPRESSION: 1. Sequelae of chronic pancreatitis. Atrophic appearing pancreas without discrete pancreatic mass or CT evidence of acute pancreatitis. No peripancreatic fluid collection. 2. Suggestion of prior liver transplant with postsurgical changes. Prior cholecystectomy. Mild intrahepatic biliary ductal dilatation. No gross common bile duct dilatation. No discrete solid appearing hepatic lesion. 3. Transplant kidney seen in right lower quadrant. No obstructing stones or hydronephrosis. Atrophic bilateral [place] kidneys. 4. No bowel obstruction or abnormal bowel wall thickening. Mild constipation. No free fluid or free air. Dictated by: Orlando Bales M.D. on 04/29/2024 at 12:51 ECG Data Attestation: I personally reviewed and interpreted this ECG as follows: Interpretation: Normal sinus rhythm rate 76 NV interval 184 QRS [address] changes MDM Narrative Medical decision making narrative: MDM CC: Abdominal pain Complicating co-morbidities: Chronic pancreatitis liver and kidney transplant Medical records reviewed: GI 01/06/2024, chronic pancreatitis was inaccessible main pancreatic duct. At the time she had a recent MRI that showed possible stone in the bile duct. 3 different physicians tried pancreatic cannulation and failed Differential considered: Bowel obstruction pancreatitis, transplant complications Exam documented above, pertinent findings include: Alert well-appearing 63-year-old female abdomen soft nontender non bloated Lab Test results independently reviewed as above. Pertinent findings: WBC 5.7 hemoglobin 13.6 hematocrit 40.5 Sodium 138 potassium 4.7 chloride 103 carbon dioxide 27 BUN 20 creatinine 1.31 previously 1.46 Lipase 17 Bilirubin liver enzymes within normal limits Independently reviewed EKG as above No ischemia Imaging studies independently reviewed: CT shows chronic pancreatitis without complication Treatments: None Discussion: Patient 63-year-old female who overall appears well presenting today with abdominal burning and pain. Blood work has been reviewed overall reassuring. CT does show chronic pancreatitis lipase of 17. At this time burning sensations probably or chronic pancreatitis not sure that it is internal shingles at this time supportive care only. She was requesting a dose prescription of prednisone which has helped her before. Discharge Plan Departure Patient Disposition: Home Clinical Impression: Chronic pancreatitis Activity Restrictions/Additional Instructions: *You have been diagnosed with chronic pancreatitis *What to do: At this time I think is her chronic pancreatitis causing you issue today. Please stay hydrated pain can *Continue to take medications as directed Prednisone 40 mg once a day for 5 days -- sent to [facility] *Follow up with your primary care provider in 2-3 days or call [phone] *Return to ER if you should have [increasing abdominal pain nausea vomiting fever [or] any new, worsening or concerning symptoms Prescriptions: New prednisone 20 mg tablet 40 mg PO DAILY Qty: 10 0RF No Action mycophenolate sodium 180 mg tablet,delayed release (DR/EC) 180 mg PO BID Qty: 180 3RF Jardiance 10 mg tablet 10 mg PO DAILY Qty: 90 3RF Creon 36,000-114,000- 180,000 unit capsule,delayed release(DR/EC) See Rx Instructions .ROUTE .COMPLEX Qty: 90 3RF Dose Instruction: take 1 capsule by mouth three times a day with meals or SNACKS Rx Instructions: take 1 capsule by mouth three times a day with meals or SNACKS valacyclovir 1 gram tablet 1,000 mg PO Q12H Qty: 14 0RF oxycodone 5 mg tablet 5 mg PO Q6H PRN (Reason: pain) Qty: 20 0RF methenamine hippurate 1 gram tablet 1 g PO BID Qty: 60 11RF tacrolimus [Prograf] 1 mg capsule 2 mg PO BID Rx Instructions: administer on an empty stomach; take two tabs by mouth in the am and one tab by mouth in the pm. cholecalciferol (vitamin D3) 1,250 mcg (50,000 unit) capsule 1,250 mcg PO QWEEK Qty: 8 0RF prednisone 10 mg tablets,dose pack See Rx Instructions .ROUTE .COMPLEX Qty: 15 0RF Rx Instructions: orally per package directions. Take 50 mg x 1 day, then 40 mg x 1 day, then 30 mg x 1 day, then 20 mg x 1 day, then 10 mg x 1 day pantoprazole 40 mg tablet,delayed release (DR/EC) 40 mg PO DAILY PRN (Reason: reflux) Qty: 30 0RF metformin 500 mg tablet 500 mg PO DAILY Qty: 90 3RF gabapentin 100 mg capsule See Rx Instructions PO BEDTIME Qty: 90 3RF Rx Instructions: Take up to 6 capsules nightly as needed for post herpetic neuralgia orally bedtime; Referrals: Jv Lopez DO [Primary Care Provider] - Stand Alone Forms: Patient Portal/API/Survey
== END 2024-04-29 14:20 | disposition home or self-care (01) ==
PROVIDERS: Emergency Provider Emergency Medicine; PCP Family Medicine
DX: K86.1 Other chronic pancreatitis (principal)
CPT/HCPCS: 74177; 80053; 81003; 83690; 85025; 93005; 99283; 99284; Q9967